=== PATIENT | female | born 1940 | race Caucasian/White ===

== ENCOUNTER → 2016-04-27 | Outpatient (CLI) | payer OTHER, MEDICARE ==
--- NOTE | 2016-04-27 10:58 | MA ---
Screening Digital Mammogram Clinical Indications: Routine screening. Technique: Standard cephalocaudal and mediolateral oblique projections are obtained. This examinati on is processed by the Lingua[employer] computer aided detection system. Comparison: March 2015 and 2014, February 2013 and 2011 Breast density: B; There are scattered fibroglandular densities. Findings: CAD was reviewed. No suspicious findings are identified. Impression: Negative mammogram. . BI-RADS 1. Recommendation: Routine screening is recommended in one year. [facility] will send a result letter to the patient. Negative mammography should not preclude additional workup of a clinically suspicious finding. The patient's information is entered into a reminder system with a target due date for her next mammo gram.
== END ==
LOC: FIMAGING 10:10
DX: Z12.31 Encounter for screening mammogram for malignant neoplasm of breast (principal)
CPT/HCPCS: G0202

== ENCOUNTER → 2016-05-19 | Outpatient (CLI) | payer OTHER, MEDICARE | LOC: CIMAGING 07:49 | PROVIDERS: ATTEND Internal Medicine Interventional Cardiology | DX: I74.3 Embolism and thrombosis of arteries of the lower extremities (principal); Z96.651 Presence of right artificial knee joint ==

== ENCOUNTER 2016-05-29 06:34 | Observation (INO) | payer OTHER, MEDICARE ==
[2016-05-29] MEDS ORDERED: NS 1,000 ML IV ONE (06:39)
[2016-05-29] MEDS ORDERED: FAMOTIDINE 20 MG TAB PO ONE (06:39)
[2016-05-29] MEDS ORDERED: diphenhydrAMINE 25 MG CAP PO ONE ×2 (06:39→07:19)
[2016-05-29] MEDS ORDERED: DIAZEPAM 5 MG TAB PO ONE (06:39)
[2016-05-29] MEDS ORDERED: ASPIRIN EC 325 MG TAB PO ONE ×2 (06:39→07:19)
--- NOTE | 2016-05-29 07:03 | CPEKG ---
Heart Rate: 75 RR Interval: 800 P-R Interval: 164 QRSD Interval: 80 QT Interval: 400 QTC Interval: 447 P Barton: 26 QRS Barton: 48 T Wave Barton: 88 EKG Severity - ABNORMAL ECG - EKG Impression: SINUS RHYTHM EKG Impression: ANTERIOR INFARCT, AGE INDETERMINATE Electronically Signed By: Dennis De La Cruz 30-May-2016 09:22:50
[2016-05-29 07:12] LABS: % IMMATURE GRANULYOCYTES 0.7 % (0.0-1.1); ABSOLUTE IMMATURE GRANULOCYTES 0.03 10^3/uL (0.00-0.10); ADD DIFF? NO; ADD MORPH? NO; ADD SCAN? NO; ATYPICAL LYMPHOCYTE FLAG 0 (0-99); FRAGMENT RBC FLAG 0 (0-99); HEMATOCRIT 38.9 % (38.0-47.0); HEMOGLOBIN 12.7 g/dL (12.6-16.3); LEFT SHIFT FLG 0 (0-99); LIPEMIA HEMOLYSIS FLAG 80 (0-99); MEAN CELL HEMOGLOBIN 32.8 pg (27.9-34.1); MEAN CELL HEMOGLOBIN CONCENTR. 32.6 g/dL (32.4-36.7); MEAN CELL VOLUME 100.5 fL (81.5-99.8); MEAN PLATELET VOLUME 10.7 fL (8.7-11.7); PLATELET CLUMPS FLAG 0 (0-99); PLATELET COUNT 121 10^3/uL (150-400); RED BLOOD CELL COUNT 3.87 10^6/uL (4.18-5.33); RED CELL DISTRIBUTION WIDTH 14.6 % (11.5-15.2)
[2016-05-29] MEDS ORDERED: FAMOTIDINE 20 MG TAB ONE (07:19)
[2016-05-29] MEDS ORDERED: DIAZEPAM 5 MG TAB ONE (07:19)
[2016-05-29 07:20] LABS: INR 1.03 (0.83-1.16); PROTIME(PATIENT) 13.4 SEC (12.0-15.0)
[2016-05-29 07:31] LABS: ANION GAP 8 mEq/L (8-16); CARBON DIOXIDE 25 mEq/l (22-31); CHLORIDE 110 mEq/L (97-110); CHOLESTEROL 123 mg/dL (140-220); CHOLESTEROL/HDL RATIO 2.67 RATIO (1.00-4.44); CREATININE 0.7 mg/dL (0.6-1.0); GLOMERULAR FILTRATION RATE > 60; GLUCOSE 116 mg/dL (70-100); HIGH DENSITY LIPOPROTEIN 46 mg/dL (40-85); LDL/HDL RATIO 1.28 RATIO (1.00-3.22); LOW DENSITY LIPOPROTEIN 59 mg/dL (80-100); MAGNESIUM 2.1 mg/dL (1.6-2.3); NON-HIGH DENSITY LIPOPROTEIN 77 mg/dL (90-129); POTASSIUM 4.2 mEq/L (3.5-5.2); SODIUM 143 mEq/L (134-144); TRIGLYCERIDE 93 mg/dL (35-135); VERY LOW DENSITY LIPOPROTEINS 18 mg/dL (8-25)
[2016-05-29] MEDS ORDERED: MIDAZOLAM 2 MG/2 ML VIAL ONE ×2 (07:43→09:24)
[2016-05-29] MEDS ORDERED: IOPAMIDOL (ISOVUE-300) 200 ML BTL IV ONE (07:43)
[2016-05-29] MEDS ORDERED: fentaNYL 100 MCG/2 ML INJ ONE ×2 (07:43→09:58)
[2016-05-29] MEDS ORDERED: LIDOCAINE 1% 30 ML SDV ONE (07:43)
[2016-05-29] MEDS ORDERED: HEPARIN 10,000 UNIT/10 ML MDV ONE (07:44)
--- NOTE | 2016-05-29 08:53 | SUROPNOTE ---
[facility] Operative Report - Surgery Date of procedure: 05/29/2016 Indication: This patient is a 75 year old female with a history of CAD s/p anterior OK and LAD stenting, ICM, PAD s/p femoral endarterectomy and right SFA intervention 01/2016 with Jetstream atherectomy and drug-coated balloon angioplasty, and pulmonary lymphoid sarcoid (non-parenchymal), presenting with acute recurrence of right calf claudication, worse with ambulation, similar to previous symptoms preceding endarterectomy and peripheral intervention in 2015. Patient states she can walk 5 blocks, but then has to stop secondary to leg pain. Ultrasound of the right lower extremity demonstrates heavy calcification with either total occlusion or near total occlusion very focally at the distal popliteal artery, with subsequent reconstituted 3-vessel runoff to the foot. Of note this finding was missed on CTAs secondary to artifact from right knee prosthesis. Peripheral intervention indicated secondary to severe lifestyle limiting claudication and CTA imaging indicative of high-grade stenosis. Procedures Performed: 1. Left femoral access. 2. Right femoral angiography with lower extremity runoff. 3. Atherectomy of the distal right popliteal artery with a Jetstream catheter. 4. Drug-coated balloon angioplasty of the distal right popliteal artery. Description of Procedure: Informed consent was obtained. Risks, benefits, and alternatives of the procedure were discussed. The patient was brought to the catheterization laboratory where the left groin was sterilely prepped and draped. Lidocaine 2% utilized for local anesthetic. A 6-Danish hemostatic sheath was placed in the left femoral artery utilizing the modified Seldinger technique. A 6-Danish diagnostic GAMA catheter was placed over a J guidewire. The J guidewire was exchanged for a stiff angled glidewire and the GAMA catheter was advanced. Intravenous heparin was administered. GAAM catheter was removed and exchanged for a straight flush catheter. Angiography was performed via the straight flush catheter, however it was very difficult to get an adequate view secondary to the knee prosthesis. This required multiple adjustments of the patient and the equipment to achieve a view of the angiography, not obstructed by the knee prosthesis. In the meantime, while further position adjustments were made, the 6-Danish sheath was exchanged over an angled Glidewire Advantage for a 55cm Cook 7- Danish up-and-over sheath. A 4-Danish non-taper angle Glidecath was placed over the angled Glidewire Advantage into the popliteal. Glidewire Advantage successfully crossed the distal popliteal total occlusion and advanced distally. Grandslam wire was then utilized to position a 6mm SpiderFx filter, embolic protection device, distal to the lesion. The SpiderFx filter was deployed. Grandslam wire was removed. A 2.4mm/3.4mm Jetstream XC was utilized and the Jetstream catheter was placed across the distal popliteal lesion. Atherectomy was performed in the blades down configuration for three runs. The atherectomy catheter was removed. Angiography was performed. Next, a 5mm x 60mm Lutonix 035 drug-coated balloon was chosen and carefully positioned to cover the distal popliteal. This was inflated to 6 atmospheres for 3 minutes. Angiography was performed, demonstrating satisfactory result, with 10% residual stenosis. SpiderFx filter was removed. Wire was removed. Runoff angiography was performed through the sheath with hand-injection. 7-Danish sheath was exchanged for a 7-Danish short sheath. Protamine was administered to reverse heparin and Angio-Seal arteriotomy repair was performed. Findings: Hemodynamics: Aortic pressure 132/56, mean 87. Angiography: Angiography through the straight flush catheter demonstrates a heavily calcified, focal chronic total occlusion of the distal popliteal artery , with reconstituted 3-vessel runoff below the knee. Percutaneous intervention: The chronic total occlusion of the distal popliteal was crossed with a Glidewire Advantage wire. This was followed by Jetstream atherectomy and drug-coated balloon angioplasty of the distal popliteal. This demonstrated satisfactory result by angiography, with 10% residual stenosis. Plan: 1. Dual antiplatelet therapy 2. Continue walking program 3. Continue aggressive risk modification. 4. Follow patient symptomatically and with intermittent ankle brachial index.
[2016-05-29] MEDS ORDERED: PROTAMINE SULFATE 50 MG/5 ML VIAL IVP ONE (10:24)
[2016-05-29] MEDS ORDERED: HYDROCODONE/APAP 5/325 TAB PO PRN (11:22)
[2016-05-29] MEDS ORDERED: ONDANSETRON 4 MG/2 ML VIAL IVP PRN (11:22)
[2016-05-29] MEDS ORDERED: OXYCODONE/APAP 5/325 TAB PO PRN (11:22)
[2016-05-29] MEDS ORDERED: ATROPINE SULFATE 1 MG/10 ML SYR IVP PRN (11:22)
[2016-05-29] MEDS ORDERED: LORazepam 2 MG/ML INJ IVP PRN (11:22)
[2016-05-29] MEDS ORDERED: TEMAZEPAM 15 MG CAP PO PRN (11:22)
[2016-05-29] MEDS: D5W 1/2 NS 1,000 ML IV SCH ×2 (13:05→21:01)
[2016-05-29] MEDS: CARVEDILOL 6.25 MG TAB PO SCH (18:54)
[2016-05-29] MEDS: BRIMONIDINE/TIMOLOL 5 ML OPHT.BTL RTEYE SCH (20:37)
[2016-05-29] MEDS: valACYclovir 500 MG TAB PO SCH (20:37)
[2016-05-29] MEDS: LOSARTAN POTASSIUM 25 MG TAB PO SCH (20:37)
[2016-05-29] MEDS: DORZOLAMIDE/TIMOLOL 10 ML OPHT.BTL LEFTEYE SCH (20:38)
[2016-05-29] MEDS: CYCLOSPORINE 0.05% 1 EACH BOX RTEYE SCH (20:38)
[2016-05-29] MEDS ORDERED: ROSUVASTATIN CALCIUM 20 MG TAB PO SCH (21:00)
[2016-05-29] MEDS ORDERED: ASPIRIN EC 81 MG TAB PO SCH (21:00)
[2016-05-30 04:30] LABS: % IMMATURE GRANULYOCYTES 0.9 % (0.0-1.1); ABSOLUTE IMMATURE GRANULOCYTES 0.03 10^3/uL (0.00-0.10); ADD DIFF? NO; ADD MORPH? NO; ADD SCAN? NO; ATYPICAL LYMPHOCYTE FLAG 20 (0-99); FRAGMENT RBC FLAG 0 (0-99); HEMATOCRIT 34.9 % (38.0-47.0); HEMOGLOBIN 11.5 g/dL (12.6-16.3); LEFT SHIFT FLG 0 (0-99); LIPEMIA HEMOLYSIS FLAG 80 (0-99); MEAN CELL HEMOGLOBIN 33.3 pg (27.9-34.1); MEAN CELL VOLUME 101.2 fL (81.5-99.8); PLATELET CLUMPS FLAG 0 (0-99); PLATELET COUNT 102 10^3/uL (150-400); RED BLOOD CELL COUNT 3.45 10^6/uL (4.18-5.33); RED CELL DISTRIBUTION WIDTH 14.6 % (11.5-15.2)
[2016-05-30 05:05] LABS: ALBUMIN 3.1 g/dL (3.5-5.0); ANION GAP 7 mEq/L (8-16); ASPARTATE AMINOTRANSFERASE 32 IU/L (14-46); BILIRUBIN,TOTAL 0.6 mg/dL (0.1-1.4); CALCIUM 8.7 mg/dL (8.5-10.4); CARBON DIOXIDE 23 mEq/l (22-31); CHLORIDE 110 mEq/L (97-110); CREATININE 0.6 mg/dL (0.6-1.0); GLOMERULAR FILTRATION RATE > 60; GLUCOSE 112 mg/dL (70-100); LACTATE DEHYDROGENASE 517 IU/L (313-618); POTASSIUM 4.3 mEq/L (3.5-5.2); SODIUM 140 mEq/L (134-144)
[2016-05-30 07:25] VITALS: BP 138/82; PULSE 76; RESP 14; TEMP 97.9; O2SAT 94
[2016-05-30] MEDS ORDERED: CLOPIDOGREL BISULFATE 75 MG TAB PO SCH (09:00)
[2016-05-30] MEDS ORDERED: PANTOPRAZOLE SODIUM 40 MG TAB PO SCH (09:00)
--- NOTE | 2016-05-30 09:16 | SOAPPROG ---
[facility] Progress Note Assessment/Plan: Assessment: Cardiology (Ava) 1. Status post drug coated balloon angioplasty of right distal popliteal artery. 2. History of remote right SFA endarterectomy (12/2014) followed by restenosis and drug coated balloon angioplasty in January 2016. 3. CAD s/p remote CT and LAD stenting. 4. Hyperlipidemia. 5. HTN. 6. Pulmonary sarcoid. Plan: 1. Continue DAPT with aspirin and Plavix 75 mg/d. 2. ? holding aspirin and/or Plavix prior to scheduled thumb surgery on 06/13/16 ( [place]). 3. Continue all other medication as directed. 4. Office follow up June 08 at 345 pm. 05/30/16 09:09 Subjective: No complaints overnight. Left groin puncture site is uncomplicated. Strong DP pulses bilaterally, now R slightly greater than L. Objective: Vital Signs Temp Pulse Resp BP Pulse Ox 36.6 C 76 14 138/82 H 94 05/30/16 07:22 05/30/16 07:22 05/30/16 07:22 05/30/16 07:22 05/30/16 07:22 Laboratory Results 05/30/16 04:07 05/30/16 04:07 05/29/16 05/30/16 05/31/16 05:59 05:59 05:59 Intake Total 3620 Balance 3620 PT 13.4 SEC (12.0-15.0) 05/29/16 07:00 INR 1.03 (0.83-1.16) 05/29/16 07:00 - Time Spent With Patient Time Spent With Patient: 45 minutes spend in coordinating care, physical exam, and documentation. ICD10 Worksheet Patient Problems: Problems Problem Status Onset CAD (coronary artery disease) Acute Claudication of right lower extremity Acute
--- NOTE | 2016-05-30 09:23 | CPEKG ---
Heart Rate: 76 RR Interval: 789 P-R Interval: 168 QRSD Interval: 86 QT Interval: 384 QTC Interval: 432 P Albia: 55 QRS Albia: 56 T Wave Albia: 90 EKG Severity - ABNORMAL ECG - EKG Impression: SINUS RHYTHM EKG Impression: ANTERIOR INFARCT, AGE INDETERMINATE Electronically Signed By: Dennis De La Cruz 30-May-2016 16:51:50
[2016-05-30] MEDS: CARVEDILOL 6.25 MG TAB PO SCH (09:37)
[2016-05-30] MEDS: valACYclovir 500 MG TAB PO SCH (09:37)
[2016-05-30] MEDS: LOSARTAN POTASSIUM 25 MG TAB PO SCH (09:38)
[2016-05-30] MEDS: BRIMONIDINE/TIMOLOL 5 ML OPHT.BTL RTEYE SCH (09:40)
[2016-05-30] MEDS: DORZOLAMIDE/TIMOLOL 10 ML OPHT.BTL LEFTEYE SCH (09:41)
[2016-05-30] MEDS: CYCLOSPORINE 0.05% 1 EACH BOX RTEYE SCH (09:41)
--- NOTE | 2016-05-30 10:17 | GDS ---
[f rep st] DISCHARGE SUMMARY DISCHARGE DIAGNOSES: 1. Status post drug coated balloon angioplasty of right distal popliteal artery. 2. History of right superficial femoral artery endarterectomy and subsequent drug coated balloon an gioplasty. 3. Coronary artery disease, status post remote anterior myocardial infarction and left anterior sterling cending coronary artery stenting. 4. Hyperlipidemia. 5. Hypertension. 6. Pulmonary sarcoid. HOSPITAL PROCEDURES: 1. Left femoral access. 2. Right femoral angiography with lower extremity runoff. 3. Atherectomy of distal right popliteal with a jet stream catheter. 4. Drug coated balloon angioplasty of the distal right popliteal artery. HOSPITAL COURSE: The patient is a pleasant 75-year-old female with diagnoses as above who has been complaining of recurrent claudication type symptoms behind her right knee for the past few months si milar but somewhat different compared to her claudication experienced with prior right superficial f emoral artery claudication. The patient initially had an abdominal CT angiogram with bilateral runo ff earlier this year that showed patency of her right superficial femoral artery following balloon a ngioplasty, but likely missed her popliteal stenosis due to superimposed knee hardware. Due to ongo ing symptoms, we performed right lower extremity arterial Doppler ultrasound which was able to diagn ose the stenotic lesion. She presented to the hospital yesterday for elective percutaneous interven tion with Dr. Ramirez. The patient ultimately received a jet stream atherectomy and drug coated bal loon angioplasty for this focal distal popliteal lesion. Please see the dictated catheterization re port. The patient has done well overnight with no complications. Laboratory studies this morning show slight drop in hemoglobin and hematocrit due to blood loss, now 11.5 and 13.9, respectively. Chemistry panel is unremarkable. Fasting lipids show an LDL cholester ol of 59 with an HDL of 46. She will continue on all her same medications which include dual anti-p latelet therapy with aspirin and Plavix. She does have an upcoming thumb surgery scheduled for the end of the month, see discharge instructions below. DISCHARGE MEDICATIONS: Aspirin 81 mg p.o. daily. Clopidogrel 75 mg p.o. daily. Combigan 1 drop to right eye twice daily. Carvedilol 12.5 mg p.o. twice daily. Vitamin D3 2000 units p.o. daily. Vi tamin B12 1500 mcg p.o. daily. Cosopt 1 drop to left eye twice daily. Furosemide 20 mg p.o. every other day. Losartan 12.5 mg p.o. twice daily. Multivitamin. Cyclosporine eye drops, 1 drop to the right eye twice daily. [place]-3 fatty acids. DISCHARGE INSTRUCTIONS: The patient is to remain on dual anti-platelet therapy with aspirin 81 mg a nd clopidogrel 75 mg once daily. I have continued all her other home medications as well. Emily moss her thumb surgery scheduled for June [address] Abad, we have attempted to contact Dr. Abad. How ever, optimally she would have this surgery performed on aspirin. Otherwise she has office followup scheduled for June 08 at 3:45. We have discussed continuing a regular walking program. /[id number]/MODL
[2016-05-31] MEDS ORDERED: FUROSEMIDE 20 MG TAB PO SCH (09:00)
== END 2016-05-30 10:55 | disposition home or self-care (01) ==
LOC: FCATH 06:34 → F2W 10:42
PROVIDERS: ADMIT Internal Medicine Interventional Cardiology; ATTEND Internal Medicine Interventional Cardiology
PROC: 047M3ZZ Dilation of Right Popliteal Artery, Percutaneous Approach (ICD-10-PCS; principal; 2016-05-29)
PROC: 04CM3ZZ Extirpation of Matter from Right Popliteal Artery, Percutaneous Approach (ICD-10-PCS; principal; 2016-05-29)
DX: I70.211 Atherosclerosis of native arteries of extremities with intermittent claudication, right leg (principal); I77.1 Stricture of artery; I25.10 Atherosclerotic heart disease of native coronary artery without angina pectoris; I25.2 Old myocardial infarction; Z95.5 Presence of coronary angioplasty implant and graft; D86.0 Sarcoidosis of lung; I10 Essential (primary) hypertension
CPT/HCPCS: 37225; 75710; 93005; C1724; C1769; C1884; C2623; J1644; J2250; J2720; J3010; Q9967

== ENCOUNTER → 2016-10-26 | Outpatient (CLI) | payer OTHER, MEDICARE | LOC: FIMAGING 08:00 | PROVIDERS: ATTEND Physician Assistant Medical | DX: T82.858A Stenosis of other vascular prosthetic devices, implants and grafts, initial encounter (principal) ==

== ENCOUNTER → 2017-04-18 | Outpatient (CLI) | payer OTHER, MEDICARE | LOC: FIMAGING 12:59 | PROVIDERS: ATTEND Internal Medicine Cardiovascular Disease | DX: T82.856D Stenosis of peripheral vascular stent, subsequent encounter (principal); Z95.828 Presence of other vascular implants and grafts ==

== ENCOUNTER → 2017-04-25 | Outpatient (CLI) | payer OTHER, MEDICARE | LOC: BHFA 10:00 | PROVIDERS: ATTEND Internal Medicine Cardiovascular Disease | DX: I73.9 Peripheral vascular disease, unspecified (principal) ==

== ENCOUNTER 2017-04-30 08:08 | Inpatient (IN) | payer OTHER, MEDICARE ==
--- NOTE | 2017-04-30 08:26 | EDPHY ---
H & P Stated Complaint: R leg worsening pain--comprimised bld flow per Adam Time Seen by Provider: 04/30/17 08:25 - Medical/Surgical History Hx Asthma: No Hx Chronic Respiratory Disease: Yes Hx Diabetes: No Hx Cardiac Disease: Yes Hx Renal Disease: No Hx Cirrhosis: No Hx Alcoholism: No Hx HIV/AIDS: No Hx Splenectomy or Spleen Trauma: No Other PMH: tonsils,appy,ortho,cardiac with stent,emphysema, HTN, dyslipidemia - Social History Smoking Status: Former smoker Constitutional: Initial Vital Signs Temperature (C) 36.0 C 04/30/17 08:12 Heart Rate 80 04/30/17 08:12 Respiratory Rate 16 04/30/17 08:12 Blood Pressure 139/75 H 04/30/17 08:12 O2 Sat (%) 95 04/30/17 08:12 O2 Delivery Mode Room Air Allergies/Adverse Reactions: Penicillins Allergy (Intermediate, Verified 08/11/15 07:03) WELTS, SWOLLEN Home Medications: Medication Instructions Recorded Carvedilol [Coreg (*)] 12.5 mg PO BIDMEAL 01/19/15 Cholecalciferol Vit D3 [Vitamin D3 2,000 units PO DAILY 01/19/15 (*)] Cyanocobalamin [Vitamin B12 (*)] 1,500 mcg PO DAILY 01/19/15 Herbals/Supplements -Info Only 1 ea PO DAILY 01/19/15 Losartan Potassium [Cozaar 25 mg 12.5 mg PO BID 01/19/15 (*)] Multivitamins [Multivitamin (*)] 1 each PO DAILY 01/19/15 Ovalo-3 Ethyl Est-Lovaza [Lovaza 1 1 gm PO BID 01/19/15 gm (*)] Pantoprazole Sodium [Protonix 40mg 40 mg PO DAILY 01/19/15 (*)] Rosuvastatin Calcium [Crestor 20mg 20 mg PO HS 01/19/15 (*)] cycloSPORINE 0.05% [Restasis Opht 1 drop RTEYE BID 01/19/15 Drops(*)] valACYclovir [Valtrex (*)] 1,000 mg PO BID 01/19/15 Furosemide [Lasix 20 MG (*)] 20 mg PO Q2D 01/19/16 Nitroglycerin [Nitrostat 0.4 mg 0.4 mg SL Q5M PRN 01/19/16 (*)] Clopidogrel Bisulfate [Plavix (*)] 75 mg PO DAILY #0 tab 01/20/16 Aspirin EC [Aspirin EC 81 mg (*)] 81 mg PO HS 05/29/16 Brimonidine/Timolol [Combigan (*)] 1 drop RTEYE BID 05/29/16 Dorzolamide/Timolol [Cosopt (*)] 1 drops LEFTEYE BID 05/29/16 Medical Decision Making - Diagnostics Imaging: Discussed imaging studies w/ call center analyst Radiologist, I viewed and interpreted images myself ED Course/Re-evaluation: CHIEF COMPLAINT: Right leg pain HISTORY OF PRESENT ILLNESS: The patient is a 76 y/o female with vascular disease complaining of progressive right leg pain for the last several months. Her medical history includes sarcoidosis, rheumatoid arthritis, CAD, DC with stent, peripheral vascular disease with atherectomy and angioplasty of the distal right popliteal artery in May 2016. She had a few months of relief following the angioplasty with Dr. Ramirez, but her calf pain recurred around October and an ultrasound then showed 50-75% stenosis of the popliteal artery. Her pain is aggravated by walking and until recently resolved at rest, though the distance she has been able to walk with less pain has steadily decreased. She has had difficulty getting into a specialist for reevaluation, but was able to see Dr. Medina a few weeks ago. He performed another ultrasound that showed 90-95% stenosis of her popliteal artery. Last night the pain woke her from sleep and has been constant since then and is not aggravated by leg raise or palpation. She is on Plavix. She denies chest pain, dyspnea, fever, rash, peripheral ulcers. REVIEW OF SYSTEMS: A 10 point review of systems was performed and is negative with the exception of the elements mentioned in the history of present illness. PHYSICAL EXAM: HR, BP, O2 Sat, RR. Temp noted General Appearance: Alert, well hydrated, appropriate, and non-toxic appearing. Head: Atraumatic without scalp tenderness or obvious injury Eyes: Pupils equal, round, reactive to light and accommodation, EOMI, no trauma , no injection. Nose: Atraumatic, no rhinorrhea, clear. Throat: Mucus membranes moist. Neck: Supple, nontender, no lymphadenopathy. Respiratory: No retractions, no distress, no wheezes, and no accessory muscle use. Lungs are clear to auscultation bilaterally. Cardiovascular: Regular rate and rhythm, no murmurs, rubs, or gallops. Right leg: biphasic dorsalis pedis pulses on Doppler, no discernable posterior tibial pulse, bounding right femoral pulse. Good capillary refill all extremities. Gastrointestinal: Abdomen is soft, nontender, non-distended, no masses, no rebound, no guarding, no peritoneal signs. Musculoskeletal: Normal active ROM of all extremities, atraumatic. No right foot ulcers. Neurological: Alert, appropriate, and interactive. The patient has non-focal cranial nerves, motor, sensory, and cerebellar exam. Skin: No rashes, good turgor, no nodules on palpation. Past medical history: CAD, DC in 1998 with stenting, emphysema, postoperative blood clot 2009, sarcoidosis, rheumatoid arthritis, hyperlipidemia Past surgical history: Appendectomy, tonsillectomy, knee replacement Family history: Noncontributory Social history: . Lives alone in [place]. PCP: Dr. Clay, Leadership Development Instructor: Dr. Medina and formerly Dr. Ramirez. Prior medical records reviewed including operative note from Dr. Ramirez on 05/29 for atherectomy and angioplasty. DIAGNOSTICS/PROCEDURES/CRITICAL CARE TIME: CTA with runoff of right leg: Critical care time spent by me, Dr. Campos, exclusively with this patient was 45 minutes, exclusive of PA time and exclusive of procedures. The organ system at risk was vascular. Time spent in serial assessments of patient, discussion with patient, consideration of interventions, review of imaging and past records , and consultation with cardiology and surgery. DIFFERENTIAL DIAGNOSIS: The differential diagnosis for the patient's leg pain included but was not limited to popliteal stenosis, peripheral vascular disease , cellulitis, hypoalbuminemia, congestive heart failure, cor pulmonale, venous stasis, trauma, and DVT. MEDICAL DECISION MAKING: This is a 76 y/o female with vascular disease and prior right popliteal angioplasty and atherectomy performed about one year ago who presents with several months of worsening claudication who now has rest pain in her right leg. An US 2 weeks ago showed 90-95% stenosis of her popliteal artery. She has biphasic right dorsalis pedis pulse on Doppler consistent with stenosis and a bounding right femoral pulse indicating good inflow. No evidence of cellulitis or ulcerations. Plan for labs, symptom management as needed, and cardiology consultation. Patient declined pain medication at this time. 0905: Consulted with Dr. Chung, cardiology. He will review history and contact me again. 0935: Consulted with Dr. Chung. He consulted with Dr. Steele, surgeon, and Dr. Soares, cardiologists, and plans to admit for femoral to popliteal bypass today or tomorrow. He requests a CTA with runoff of right leg. 0950: Consulted again with Dr. Chung after he assessed patient in the ED. He would like to cancel the CTA due to possible artifact in the image due to prior knee replacement. 1006: Consulted with Dr. Steele, surgeon. He will assess patient in the ED and plans to manage this surgically. He does want the CTA performed. Reevaluated patient and discussed findings and recommendations. She agrees to plan. Spoke with hospitalist service. Dr. Mitchell accepts admission. 1034: Consulted with Dr. Medina, patient's early childhood lead teacher. He agrees with management plan. - Data Points Laboratory Results: Laboratory Results 04/30/17 09:40 04/30/17 04/30/17 04/30/17 09:40 09:40 09:40 WBC Pending RBC Pending Hgb Pending Hct Pending MCV Pending MCH Pending MCHC Pending RDW Pending Plt Count Pending MPV Pending Neut % (Auto) Pending Lymph % (Auto) Pending [place] % (Auto) Pending Eos % (Auto) Pending Baso % (Auto) Pending Nucleat RBC Rel Count Pending Absolute Neuts (auto) Pending Absolute Lymphs (auto) Pending Absolute Monos (auto) Pending Absolute Eos (auto) Pending Absolute Basos (auto) Pending Absolute Nucleated RBC Pending Immature Gran % Pending Immature Gran # Pending PT 13.7 SEC SEC (12.0-15.0) INR 1.03 (0.83-1.16) APTT 20.0 SEC L SEC (23.0-38.0) Sodium 143 mEq/L mEq/L (135-145) Potassium 4.8 mEq/L mEq/L (3.5-5.2) Chloride 105 mEq/L mEq/L (97-110) Carbon Dioxide 25 mEq/l mEq/l (22-31) Anion Gap 13 mEq/L mEq/L (8-16) BUN 17 mg/dL mg/dL (7-23) Creatinine 0.6 mg/dL mg/dL (0.6-1.0) Estimated GFR > 60 Glucose 101 mg/dL H mg/dL (70-100) Calcium 9.4 mg/dL mg/dL (8.5-10.4) Departure - Departure Disposition: [facility] Inpatient Acute Clinical Impression: Claudication of right lower extremity, Rest pain of right lower extremity concurrent with and due to atherosclerosis of bypass graft, Stenosis of right popliteal artery Condition: Fair Referrals: Yanet Clay MD [Primary Care Provider] - As per Instructions Report Scribed for: Jesu Campos Report Scribed by: Orquidea Case Date of Report: 04/30/17 Time of Report: 08:46
[2017-04-30 09:49] LABS: PLATELET COUNT 87 10^3/uL (150-400)
[2017-04-30 10:02] LABS: INR 1.03 (0.83-1.16); PROTIME(PATIENT) 13.7 SEC (12.0-15.0)
[2017-04-30] MEDS ORDERED: IOPAMIDOL (ISOVUE-370) 150 ML BTL IV ONE (10:16)
--- NOTE | 2017-04-30 11:03 | GCON ---
[f rep st] CONSULTATION CARDIOLOGY CONSULTATION DATE OF CONSULTATION: 04/30/2017 REFERRING PHYSICIAN: Jesu Campos MD HISTORY OF PRESENT ILLNESS: The patient is a 76-year-old female with a history of coronary disease, previous myocardial infarction, PCI of the LAD, and ischemic cardiomyopathy. She is a former patient of Dr. Main Ramirez'santiago. She also has a history of peripheral vascular disease, which has been treate d by a percutaneous angioplasty with stent placement in the right superficial femoral artery in 2015. Because of recurrent claudication, she underwent a repeat evaluation in early 2016, [facility] disclosed a previously unrecognized right popliteal high-grade stenosis. This stenosis had been o bscured on previous angiography, both CT and invasive, by the components from a previous right total knee arthroplasty. In May of 2016, she underwent atherectomy and drug-coated balloon angioplasty o f her right popliteal stenosis. Over the past several weeks, she has developed progressively worseni ng claudication. Over the weekend, she began to have pain at rest in her right foot, particularly at nighttime. She contacted Dr. Reece Matamoros from our practice this morning through the answering service to report rest claudication. He advised her to come to the emergency room. In the emergency room, her right foot is warm. It is not cyanotic. There are only dopplerable pulses in right foot. When I speak with her, she says that she is not having any significant pain. Rather, she has a sensation feeling like her right foot is swollen. PAST CARDIAC HISTORY AND TESTING: She has a history of a previous anterior myocardial infarction in 1998, which was treated with PCI of the LAD. Her most recent cardiac catheterization took place in [facility] 2010. That study demonstrated an ischemic cardiomyopathy with an ejection fraction of mercedes roximately 45%, with anterior and apical akinesis. Her previous LAD stent site was patent. The rita jose of her coronary tree demonstrated [id number] coronary atherosclerosis. She had routine followup with Dr. Ramirez, including a reportedly negative nuclear stress test within the past couple of years. Peripheral vascular disease as outlined above. PAST MEDICAL HISTORY: In addition to her cardiovascular issues, she has a history of sarcoidosis. S he has osteoarthritis, status post bilateral total knee arthroplasties. She had a DVT after one of h er knee operations. There is a history of hypertension and peptic ulcer disease. FAMILY HISTORY: Noncontributory. MEDICATIONS: Please refer to the electronic record. Relevant cardiac medications include aspirin, c lopidogrel, carvedilol, furosemide, losartan, and rosuvastatin. ALLERGIES: Penicillin. SOCIAL HISTORY: She is . She has adult stepchildren. She is a former smoker, having stopped at the time of her myocardial infarction. She does not consume significant amounts of alcohol. Her physical exercise is limited by her arthritis and claudication. REVIEW OF SYSTEMS: Positive for resting right foot ischemic discomfort and joint pain from her osteo arthritis. Otherwise, a 10-point review was negative. PHYSICAL EXAMINATION: VITAL SIGNS: Heart rate 96, blood pressure 139/75, O2 saturation 95% on room air. GENERAL: This is a pleasant, well-developed, well-nourished woman in no acute distress. She i s alert and oriented x3. HEAD AND NECK: No scleral icterus. Mucous membranes moist. Carotid pulse s 2+, without bruits. There is no JVD. CHEST: Lung del cast[place] clear bilaterally. CARDIAC: Regular ra te and rhythm, with a normal S1 and S2. There is no murmur or gallop. ABDOMEN: Soft, nontender, no ndistended, with normal bowel sounds. EXTREMITIES: 2+ femoral pulses bilaterally. One to 2+ pedal pulses on the left. Nonpalpable pedal pulses on the right, but reportedly, dopplerable by the emerge ncy room staff. The right foot is warm and has normal capillary refill. There is no cyanosis. LABORATORY STUDIES: Pending at the time of this dictation. Lower extremity duplex: A lower extremity duplex study performed on April 18 of this year suggests that the patient has a recurrent 90% to 95% stenosis at the right popliteal site. IMPRESSION: This is a 76-year-old woman with a history of cardiovascular disease consisting of coron esmer disease with previous myocardial infarction and percutaneous coronary intervention. She also has a history of lower extremity peripheral arterial disease, status post 2 percutaneous revascularizati on procedures on her right lower extremity. She now presents with progressively worsening claudicati on culminating in rest pain over the weekend. She does not appear to have acute, limb-threatening is chemia. PLAN: I have discussed her situation with 2 of my partners who perform peripheral revascularization procedures. The location at the popliteal is particularly problematic for repeat percutaneous revasc ularization procedures. There is a high incidence of restenosis. The patient appears to have good q uality vessels proximal and distal to the popliteal fossa. Therefore, the recommendation is that a s urgical revascularization procedure be considered. The patient appears to be an acceptable candidate for such surgery. She will be admitted to the hospitalist service. She will be scheduled for a for mal arteriogram with Interventional Radiology tomorrow. CT angiography has previously been performed , and there is too much scatter from her right knee replacement to adequately visualize the area in q uestion. Dr. Laureano Steele has also been briefly contacted about the patient. We will re-engage him once we have angiographic images of her high-grade popliteal stenosis. /[id number]/MODL
[2017-04-30] MEDS ORDERED: ZOLPIDEM TARTRATE 5 MG TAB PO PRN (12:07)
[2017-04-30] MEDS ORDERED: ONDANSETRON DISINTEGRATING 4 MG TAB PO PRN (12:07)
[2017-04-30] MEDS ORDERED: ONDANSETRON 4 MG/2 ML VIAL IVP PRN (12:07)
[2017-04-30] MEDS ORDERED: ACETAMINOPHEN 325 MG TAB PO PRN (12:07)
[2017-04-30] MEDS ORDERED: HEPARIN 20,000 UNIT/ML VIAL SC SCH (12:15)
[2017-04-30] MEDS: HEPARIN 5,000 UNIT/0.5 ML SYR SC SCH ×2 (13:07→20:55)
--- NOTE | 2017-04-30 13:36 | SOAPPROG ---
JORGITO Progress Note Assessment/Plan: Assessment/Plan: 76 Y F c CAD and a stent, PAD with multiple R leg angioplasties , here for resting R leg claudication. Seen and examined with Dr. Steele. Full consult to follow. Reviewed CTA images. Will get arterial studies and US vein mapping for graft options. Plan for right below knee fem pop bypass next 1-2 days--most likely Sunday. 04/30/17 15:16 Objective: Vital Signs Temp Pulse Resp BP Pulse Ox 37.1 C 79 18 164/66 H 94 04/30/17 12:00 04/30/17 12:00 04/30/17 12:00 04/30/17 12:00 04/30/17 12:00 04/29/17 04/30/17 05/01/17 05:59 05:59 05:59 Output Total 300 Balance -300 PT 13.7 SEC (12.0-15.0) 04/30/17 09:40 INR 1.03 (0.83-1.16) 04/30/17 09:40 ICD10 Worksheet Patient Problems: Problems Problem Status Onset Claudication of right lower extremity Acute Rest pain of right lower extremity concurrent with and due to atherosclerosis of bypass graft Acute Stenosis of right popliteal artery Acute CAD (coronary artery disease) Acute
--- NOTE | 2017-04-30 14:08 | SOAPPROG ---
SOAP Progress Note Assessment/Plan: Assess 76-year-old female with limiting claudication and early rest pain on her right leg secondary to popliteal artery occlusion Patient is had 3 angioplasties and stent placements and her popliteal and distal superficial femoral artery over the last the 3-4 year. She has persistent calf claudication with walking less than walk CT angiogram shows adequate runoff in the infrapopliteal vessels. Toes viable with no skin lesions but decreased Doppler pulses on the right compared to palpable strong pulses on the left Chest clear/cor regular rhythm/carotids without bruits/neuro exam physiologic Plan: Cardiac clearance/noninvasive arterial studies/saphenous vein mapping/ than right fem-pop bypass with reverse saphenous vein/risks and options fully discussed 04/30/17 14:03 Objective: Vital Signs Temp Pulse Resp BP Pulse Ox 37.1 C 79 18 164/66 H 94 04/30/17 12:00 04/30/17 12:00 04/30/17 12:00 04/30/17 12:00 04/30/17 12:00 04/29/17 04/30/17 05/01/17 05:59 05:59 05:59 Output Total 300 Balance -300 PT 13.7 SEC (12.0-15.0) 04/30/17 09:40 INR 1.03 (0.83-1.16) 04/30/17 09:40 ICD10 Worksheet Patient Problems: Problems Problem Status Onset Claudication of right lower extremity Acute Rest pain of right lower extremity concurrent with and due to atherosclerosis of bypass graft Acute Stenosis of right popliteal artery Acute CAD (coronary artery disease) Acute
[2017-04-30] MEDS ORDERED: ALBUTEROL 60 PUFFS/8 GM MDI IH PRN (17:03)
[2017-04-30] MEDS: CARVEDILOL 6.25 MG TAB PO SCH (17:41)
--- NOTE | 2017-04-30 19:39 | PDGENHP ---
History and Physical History and Physical: CC: For worsening claudication right leg HISTORY: This patient has a history severe peripheral vascular disease with 3 previous percutaneous interventions to her right leg at the superficial femoral and popliteal arteries over the last couple years. Over last 3 months she has had gradually now much more rapidly progressive exertional claudication in the lower right leg finally now resulting in persisting rest pain in the foot. No fevers no injuries. She also has a history of coronary disease and there is no angina or heart failure symptoms or palpitations, has history of pulmonary sarcoidosis with no worsening of dyspnea. ROS: A comprehensive 10 system review revealed no other significant findings PAST MEDICAL HISTORY: Peripheral vascular disease with 3 previous percutaneous interventions on the arteries of the right leg Myocardial infarction with stent to left anterior descending artery, ischemic cardiomyopathy Hyperlipidemia Hypertension Pulmonary sarcoidosis on treatment Hypertension Osteoarthritis Total knee arthroplasties DVT of leg after a knee surgery Peptic ulcer disease FAMILY MEDICAL HISTORY: Atherosclerotic vascular disease SOCIAL HISTORY: Quit smoking 20 years ago MEDICATIONS: The patients list has been reconciled by our clinical pharmacist in the EMR. I have reviewed the list and ordered appropriate medicines. PHYSICAL EXAMINATION: Vital Signs: Stable without fever Examination: General: alert, oriented, good mentation, relaxed Skin: warm, dry, good color, no rash HEENT: normal Neck: no mass or jvd Resps: relaxed Lungs: clear breath sounds Heart: regular, no murmur Abdomen: soft, nondistended, nontender, +BS, no mass Upper Extremities: normal Lower Extremities: No palpable pulses at feet, which are reasonably warm with pale color, nothing overtly necrotic or acutely compromised No Bleeding or bruising Neurologic: normal speech/language, normal bilingual elementary school teacher, no focal weakness IV site: looks normal LABORATORY DATA: Mild anemia, platelets are 87,000 Stable metabolic panel RADIOLOGY STUDIES: CT angio of the right leg with runoff, I reviewed images: There is popliteal occlusion but there is good runoff below the knee with least 2 vessels 12 LEAD EKG: Sinus rhythm, some lateral ST segment abnormalities are chronic, with probable left bundle branch ASSESSMENT: -rapidly progressive worsening of right leg claudication with no peripheral vascular disease -occlusion of previous popliteal and superficial femoral artery stents in the right leg -history of coronary disease, stable at this time without angina or heart failure or arrhythmia -pulmonary sarcoidosis, stable at this time on medication without dyspnea or evidence of right heart failure -mild anemia (chronic and stable) and thrombocytopenia which has been seen intermittently in the past as well -hyperlipidemia on medication -hypertension, controlled at this time new PLANS: -Patient has been seen by Dr. Stef Chung and Alonso Steele. Recommendations are for proceeding with bypass surgery as she is having continued recurrences after previous percutaneous procedures. -at this time my assessment is that she is a very reasonable surgical candidate , with mildly increased risk over average with her past heart and lung disease but these are currently compensated and stable -will recheck lipids to see how we are doing with controlling that -will give 1 dose of subcu heparin tonight and then delay any DVT prophylaxis medicines until after she has finished her surgery and cleared by surgery team regarding bleeding risk -continue aspirin at this time -NPO after midnight -follow her cardiopulmonary status very closely postoperative I have reviewed the patient's case in detail with Dr. Ozzy Casillas I have reviewed the patient's past medical records as part of this assessment, including previous hospital admission records and laboratory data
--- NOTE | 2017-04-30 20:35 | CPIP ---
[f rep st] INVASIVE CARDIAC PROCEDURE DATE OF PROCEDURE: 04/30/2017 PREOPERATIVE DIAGNOSIS: Right leg claudication. POSTOPERATIVE DIAGNOSIS: Right leg claudication. The patient was seen for arterial studies. She demonstrates ankle-brachial index on the left of 1.01 , and on the right of 0.37. She has dampened arterial tracings below the knee on the right, and flat tracings at the metatarsal level. On the left, her tracings are normal down to the digital levels. IMPRESSION: Occluded popliteal artery with poor compensation. RECOMMENDATIONS: Recommend angiography for further evaluation. /[id number]/MODL
[2017-04-30] MEDS: ASPIRIN EC 81 MG TAB PO SCH (20:55)
[2017-04-30] MEDS: cycloSPORINE 0.05% 30 DROPERETTE/BOX EACHEYE SCH (20:55)
[2017-04-30] MEDS: OMEGA-3 ETHYL EST-LOVAZA 1 GM CAP PO SCH (20:55)
[2017-04-30] MEDS: ROSUVASTATIN CALCIUM 20 MG TAB PO SCH (20:55)
[2017-04-30] MEDS: valACYclovir 500 MG TAB PO SCH (20:55)
[2017-04-30] MEDS: LOSARTAN POTASSIUM 25 MG TAB PO SCH (21:16)
[2017-05-01 06:39] LABS: PLATELET COUNT 145 10^3/uL (150-400)
[2017-05-01 06:48] LABS: INR 1.13 (0.83-1.16); PROTIME(PATIENT) 14.7 SEC (12.0-15.0)
[2017-05-01] MEDS ORDERED: CLOPIDOGREL BISULFATE 75 MG TAB PO SCH (09:00)
--- NOTE | 2017-05-01 09:27 | GCON ---
[f rep st] CONSULTATION GENERAL AND VASCULAR SURGERY CONSULTATION SOURCE: Both from patient and chart review. CHIEF COMPLAINT: Right leg pain. HISTORY OF PRESENT ILLNESS: The patient is a 76-year-old female with a history of peripheral arterial disease with 3 right leg angioplasties and stent placement to her popliteal artery over the last 3-4 years. She also describes what sounds like a femoral artery endarterectomy needed for catheter access. The patient presented to the ER with worsened right leg claudication with new rest pain. CT angiogram showed an occluded short segment of the distal superficial femoral artery and of the right popliteal artery stent. She had good infrapopliteal runoff. She reports no foot redness or ulcerations. PAST MEDICAL HISTORY: Includes peripheral vascular disease, as described above. Also a history of myocardial infarction with a single stent to the left anterior descending artery, ischemic cardiomyopathy, hyperlipidemia, hypertension, pulmonary sarcoidosis, osteoarthrosis, history of DVT, peptic ulcer disease. PAST SURGICAL HISTORY: Includes total knee arthroplasties. HOME MEDICATIONS: Include acetaminophen, albuterol, furosemide, vitamin B12, Plavix, vitamin D3, Coreg, aspirin, cyclosporine drops, tobramycin dexamethasone drops, Crestor, Protonix, omega-3 fatty acids, multivitamin, losartan, valacyclovir. ALLERGIES: Penicillin. FAMILY HISTORY: Per chart review, includes atherosclerotic vascular disease. SOCIAL HISTORY: Patient is . She is planning on moving back to [facility] for better support. She quit smoking about 20 years ago. REVIEW OF SYSTEMS: Ten-point review of systems performed and negative aside from that in the HPI. PHYSICAL EXAMINATION: GENERAL: Reveals a 76-year-old female who is alert and oriented x3 and in no acute distress. HEENT: Normocephalic, atraumatic. Mucous membranes moist. No scleral icterus. CHEST: Clear to auscultation bilaterally. CARDIAC: Regular rate and rhythm. ABDOMEN: Soft, nontender. EXTREMITIES: Warm and dry. No edema. Right leg slightly cool with no major color changes. No palpable right pedal pulses. Audible on Doppler, right DP worse than right PT. No ulcerations. No rubor or erythema. Left foot with palpable pedal pulses, warm, well perfused. PSYCH: Normal mood and affect. SKIN: Warm and dry. IMPRESSION: This is a 76-year-old female with progressive right leg peripheral vascular disease, now with an occluded stent. PLAN: Patient is being admitted to the hospitalist service and cardiology is consulting. She will likely need a revascularization surgery. We will obtain baseline arterial studies and an ultrasound for possible saphenous graft harvesting. She will likely need a right below-knee femoral-popliteal bypass, hopefully with her enterprise vein. Plan for surgery on Sunday, 05/02. Risks and options have been discussed including, but not limited to, bleeding, infection, injury to nerve, clotting, damage to surrounding structures, worsening ischemia , and even limb loss, and she requests to proceed as soon as it is safe. /[id number]/MODL MTDD
--- NOTE | 2017-05-01 09:27 | SOAPPROG ---
JORGITO Progress Note Assessment/Plan: Assess 76-year-old female with limiting claudication and early rest pain on her right leg secondary to popliteal artery occlusion Patient is had 3 angioplasties and stent placements and her popliteal and distal superficial femoral artery over the last the 3-4 year. She has persistent calf claudication with walking less than walk CT angiogram shows adequate runoff in the infrapopliteal vessels. Toes viable with no skin lesions but decreased Doppler pulses on the right compared to palpable strong pulses on the left Chest clear/cor regular rhythm/carotids without bruits/neuro exam physiologic Plan: Cardiac clearance/noninvasive arterial studies/saphenous vein mapping/ than right fem-pop bypass with reverse saphenous vein/risks and options fully discussed 04/30/17 14:03 05/01/17 09:26 VEIN STUDY SEEMS ADEQUATE, ART STUDIES SHOW SIGNIFICANT ISCHEMIA/ PLAN FEM- POP IN AM Objective: Vital Signs Temp Pulse Resp BP Pulse Ox 36.6 C 72 16 137/66 H 92 05/01/17 08:00 05/01/17 08:00 05/01/17 08:00 05/01/17 08:00 05/01/17 08:00 Laboratory Results 05/01/17 06:25 05/01/17 06:25 04/30/17 05/01/17 05/02/17 05:59 05:59 05:59 Intake Total 1040 Output Total 1600 100 Balance -560 -100 PT 14.7 SEC (12.0-15.0) 05/01/17 06:25 INR 1.13 (0.83-1.16) 05/01/17 06:25 ICD10 Worksheet Patient Problems: Problems Problem Status Onset Claudication of right lower extremity Acute Rest pain of right lower extremity concurrent with and due to atherosclerosis of bypass graft Acute Stenosis of right popliteal artery Acute CAD (coronary artery disease) Acute
[2017-05-01] MEDS: valACYclovir 500 MG TAB PO SCH ×2 (09:48→18:40)
[2017-05-01] MEDS: CARVEDILOL 6.25 MG TAB PO SCH ×2 (09:48→18:40)
[2017-05-01] MEDS: CHOLECALCIFEROL VIT D3 1,000 UNITS TAB PO SCH (09:49)
[2017-05-01] MEDS: PANTOPRAZOLE SODIUM 40 MG TAB PO SCH (09:49)
[2017-05-01] MEDS: MULTIVITAMINS 1 EACH TAB PO SCH (09:49)
[2017-05-01] MEDS: CYANO/VITAMIN B12 1000 MCG TAB PO SCH (09:49)
[2017-05-01] MEDS: LOSARTAN POTASSIUM 25 MG TAB PO SCH ×2 (09:50→19:59)
[2017-05-01] MEDS: HEPARIN 5,000 UNIT/0.5 ML SYR SC SCH (09:50)
[2017-05-01] MEDS: OMEGA-3 ETHYL EST-LOVAZA 1 GM CAP PO SCH (09:50)
[2017-05-01] MEDS: cycloSPORINE 0.05% 30 DROPERETTE/BOX EACHEYE SCH ×2 (09:50→21:49)
[2017-05-01] MEDS: FUROSEMIDE 20 MG TAB PO SCH (10:49)
--- NOTE | 2017-05-01 11:53 | ASMTCASEMG ---
Living Arrangements What is your living Answers: Alone arrangement? Who do you live with? Type Of Residence What kind of residence do Answers: House you live in? Discharge Plan Comments Coordination Status Comments Notes: Patient is a 76yo female who was admitted for bypass surgery due to continued reoccurances after previous percutaneous procedures. PT/OT have been ordered. D/C needs TBD. CM will follow. Date Signed: 05/01/2017 11:52 AM Electronically Signed By:Erma Jean LCSW
[2017-05-01] MEDS: TOBRAMYCIN/DEXAMETH 5 ML OPHT.BTL LEFTEYE SCH (11:57)
--- NOTE | 2017-05-01 14:24 | PDMN ---
Medical Necessity Medical necessity: est los>2mn for rapidly progressive worsening of RLE claudication, with occlusion of previous pop/fem artery stents; admit for bypass surgery; comorbid CAD, pulmonary sarcoidosis, anemia, hld, and htn; per order and H&P 04/30/17
--- NOTE | 2017-05-01 15:54 | HOSPPROG ---
Hospitalist Progress Note Assessment/Plan: DIAGNOSES: -rapidly progressive R leg claudication to now rest pain -occlusion of R SFA and R popliteal stents -thrombocytopenia, improving -anemia -hx of DVT of leg after a surgery -Hx [place]/CAD/Stent -Hyperlipidemia on med -HTN -Pulmonary Sarcoidosis PLANS: -FemPop Bypass surgery planned for tomorrow -will continue to follow postop -anticipate she may need intensive care for monitoring postop SUBJECTIVE: Patient feels better today after resting her leg, no cardiac pulmonary or febrile symptoms, eating well OBJECTIVE Vitals reviewed: Stable without fever Exam: alert oriented skin warm dry color ok resps not labored lungs clear BSs heart regular abd soft nondistended nontender, bowel sounds present limbs pulseless feet but no acute ischemic or necrotic changes iv site ok Laboratory data: Stable CBC and metabolic panel Objective: Vital Signs Temp Pulse Resp BP Pulse Ox 37.2 C 90 16 116/93 H 92 05/01/17 11:21 05/01/17 11:21 05/01/17 11:21 05/01/17 11:21 05/01/17 11:21 Laboratory Results 05/01/17 06:25 05/01/17 06:25 04/30/17 05/01/17 05/02/17 06:59 06:59 06:59 Intake Total 1040 Output Total 1700 Balance -660 PT 14.7 SEC (12.0-15.0) 05/01/17 06:25 INR 1.13 (0.83-1.16) 05/01/17 06:25 ICD10 Worksheet Patient Problems: Problems Problem Status Onset Claudication of right lower extremity Acute Rest pain of right lower extremity concurrent with and due to atherosclerosis of bypass graft Acute Stenosis of right popliteal artery Acute CAD (coronary artery disease) Acute
[2017-05-01] MEDS: ASPIRIN EC 81 MG TAB PO SCH (19:59)
[2017-05-01] MEDS: ROSUVASTATIN CALCIUM 20 MG TAB PO SCH (20:00)
[2017-05-02 05:57] LABS: PLATELET COUNT 168 10^3/uL (150-400)
[2017-05-02] MEDS: LOSARTAN POTASSIUM 25 MG TAB PO SCH ×2 (08:07→21:31)
[2017-05-02] MEDS: PANTOPRAZOLE SODIUM 40 MG TAB PO SCH (08:07)
[2017-05-02] MEDS: valACYclovir 500 MG TAB PO SCH ×2 (08:08→23:20)
[2017-05-02] MEDS: CARVEDILOL 6.25 MG TAB PO SCH ×2 (08:08→18:46)
[2017-05-02] MEDS: CHOLECALCIFEROL VIT D3 1,000 UNITS TAB PO SCH (08:32)
[2017-05-02] MEDS: CYANO/VITAMIN B12 1000 MCG TAB PO SCH (08:32)
[2017-05-02] MEDS: cycloSPORINE 0.05% 30 DROPERETTE/BOX EACHEYE SCH ×2 (08:33→21:29)
[2017-05-02] MEDS: MULTIVITAMINS 1 EACH TAB PO SCH (08:36)
[2017-05-02] MEDS ORDERED: CLINDAMYCIN 900 MG/DEXTROSE 50 ML IV ONE (09:00)
[2017-05-02] MEDS ORDERED: LIDOCAINE 1% 2 ML INJ ID PRN (10:09)
[2017-05-02] MEDS ORDERED: LR 1,000 ML IV ONE (10:09)
--- NOTE | 2017-05-02 10:21 | SOAPPROG ---
SOAP Progress Note Assessment/Plan: Assessment/Plan: 76 Y F c CAD and a stent, PAD with multiple R leg angioplasties , here for resting R leg claudication. To OR today for R below knee fempop bypass, possible saphenous vein harvesting. Risks and options and expectations discussed in detail. Consent in chart. Pre op abx ordered. NPO. Hold anticoagulants. Patient will most likely go to ICU per routine afterwards. S: still some pain in right leg. O: alert, nad ncat ctab rrr abd soft no palpable R pedal pulses, +palpable L pedal pulses 05/02/17 10:18 Objective: Vital Signs Temp Pulse Resp BP Pulse Ox 37.1 C 87 16 111/60 94 05/02/17 03:48 05/02/17 03:48 05/02/17 03:48 05/02/17 09:36 05/02/17 03:48 Laboratory Results 05/02/17 05:30 05/02/17 05:30 05/01/17 05/02/17 05/03/17 05:59 05:59 05:59 Intake Total 1040 0 Output Total 1600 100 Balance -560 -100 PT 14.7 SEC (12.0-15.0) 05/01/17 06:25 INR 1.13 (0.83-1.16) 05/01/17 06:25 ICD10 Worksheet Patient Problems: Problems Problem Status Onset Claudication of right lower extremity Acute Rest pain of right lower extremity concurrent with and due to atherosclerosis of bypass graft Acute Stenosis of right popliteal artery Acute CAD (coronary artery disease) Acute
[2017-05-02] MEDS ORDERED: PAPAVERINE HCL 60 MG/2 ML SDV ONE (10:46)
[2017-05-02] MEDS ORDERED: IOTHALAMATE MEG (CONRAY) 50 ML VIAL IV ONE (10:46)
[2017-05-02] MEDS ORDERED: PROTAMINE SULFATE 50 MG/5 ML VIAL IVP ONE (10:46)
[2017-05-02] MEDS ORDERED: BUPIVACAINE 0.5% 30 ML SDV ONE (10:46)
[2017-05-02] MEDS ORDERED: SURGIFLO MATRIX KIT WITH THROMBIN 8ml TP ONE (11:35)
[2017-05-02] MEDS ORDERED: fentaNYL 100 MCG/2 ML INJ ONE ×4 (12:39→17:21)
[2017-05-02] MEDS ORDERED: PROPOFOL/EMULSION 500 MG/50 ML BOTTLE IV ONE (12:41)
[2017-05-02] MEDS ORDERED: HYDROmorphONE/DILAUDID 1 MG/ML INJ IVP PRN ×2 (14:09→16:46)
[2017-05-02] MEDS ORDERED: NALOXONE HCL 0.4 MG/ML INJ IVP PRN (14:09)
[2017-05-02] MEDS ORDERED: DEXAMETHASONE 4 MG/ML VIAL IVP PRN (14:09)
[2017-05-02] MEDS ORDERED: ONDANSETRON 4 MG/2 ML VIAL IVP PRN (14:09)
[2017-05-02] MEDS ORDERED: LABETALOL HCL 5 MG/ML 20 ML MDV IVP PRN (14:09)
[2017-05-02] MEDS ORDERED: ALBUTEROL 3 ML DEYVIAL IH PRN (14:09)
--- NOTE | 2017-05-02 14:09 | PDANEPAE ---
ANE History of Present Illness here for fem pop bypass ANE Past Medical History - Cardiovascular History Hx Hypertension: Yes Hx Arrhythmias: No Hx Chest Pain: No Hx Coronary Artery / Peripheral Vascular Disease: Yes Hx CHF / Valvular Disease: No Hx Palpitations: No - Pulmonary History Hx COPD: Yes Hx Asthma/Reactive Airway Disease: No Hx Recent Upper Respiratory Infection: No Hx Oxygen in Use at Home: Yes O2 in Use at Home (L/minute): 2 Hx Sleep Apnea: No Sleep Apnea Screening Result - Last Documented: Positive - Endocrine History Hx Diabetes: No - Chronic Pain History Chronic Pain: No ANE Review of Systems Review of systems is: negative Review of Systems: - Exercise capacity Exercise capacity: <4 METS ANE Patient History - Allergies Allergies/Adverse Reactions: Penicillins Allergy (Intermediate, Verified 08/11/15 07:03) JUNIOR ZARATE - Home Medications Home medications: home medication list seen and reviewed Home Medications: Carvedilol [Coreg (*)] 12.5 mg PO BIDMEAL 01/19/15 [Last Taken 04/30/17] Cholecalciferol Vit D3 [Vitamin D3 (*)] 2,000 units PO DAILY 01/19/15 [Last Taken 04/29/17] Cyanocobalamin [Vitamin B12 (*)] 1,500 mcg PO DAILY 01/19/15 [Last Taken ] Herbals/Supplements -Info Only 1 ea PO DAILY 01/19/15 [Last Taken Unknown] Losartan Potassium [Cozaar 25 mg (*)] 12.5 mg PO BID 01/19/15 [Last Taken ] Multivitamins [Multivitamin (*)] 1 each PO DAILY 01/19/15 [Last Taken 04/29/17] Niland-3 Ethyl Est-Lovaza [Lovaza 1 gm (*)] 1 gm PO BID 01/19/15 [Last Taken 02/03 21:00] Pantoprazole Sodium [Protonix 40mg (*)] 40 mg PO DAILY 01/19/15 [Last Taken 03/05] Rosuvastatin Calcium [Crestor 20mg (*)] 20 mg PO HS 01/19/15 [Last Taken ] cycloSPORINE 0.05% [Restasis Opht Drops(*)] 1 drop EACHEYE BID 01/19/15 [Last Taken 04/30/17] valACYclovir [Valtrex (*)] 500 mg PO BID 01/19/15 [Last Taken 04/30/17] Furosemide [Lasix 20 MG (*)] 20 mg PO Q2D 01/19/16 [Last Taken 04/29/17] Aspirin EC [Aspirin EC 81 mg (*)] 81 mg PO HS 05/29/16 [Last Taken 04/29/17] Acetaminophen [Tylenol ES 500 mg (*)] 1,000 mg PO HS 04/30/17 [Last Taken ] Albuterol [Proventil Inhaler HFA (*)] 2 puffs IH DAILY PRN 04/30/17 [Last Taken 04/29/17] Tobramycin/Dexameth [Tobradex opht drops (*)] 1 drops LEFTEYE Q2D 04/30/17 [ Last Taken 04/29/17] - NPO status NPO Status: no food or drink >8 hours NPO Since - Liquids (Date): 05/01/17 NPO Since - Liquids (Time): 20:00 NPO Since - Solids (Date): 05/01/17 NPO Since - Solids (Time): 20:00 - Smoking Hx Smoking Status: Former smoker ANE Labs/Vital Signs - Labs Result Diagrams: 05/02/17 05:30 05/02/17 05:30 - Vital Signs Vital Signs: reviewed preoperatively; see RN documention for details Blood Pressure: 143/74 Heart Rate: 75 Respiratory Rate: 16 O2 Sat (%): 94 Height: 170.18 cm Weight: 76.204 kg ANE Physical Exam - Airway Neck exam: FROM Mallampati Score: Class 1 - Pulmonary Pulmonary: no respiratory distress - Cardiovascular Cardiovascular: regular rate and rhythym - ASA Status ASA Status: III ANE Anesthesia Plan Anesthesia Plan: GA w LMA Lines/Monitors: additional IV
--- NOTE | 2017-05-02 15:01 | ASMTCMCOM ---
CM Note CM Note Notes: Pt at [facility] [place] today for fem-pop bypass. Pt lives alone. DC needs not clear yet. CM will follow. Date Signed: 05/02/2017 02:56 PM Electronically Signed By:Yaneth Raymundo RN
[2017-05-02] MEDS: THROMBIN (BOVINE) 20,000 UNIT SPRAY TP ONE ×2 (15:11→16:12)
[2017-05-02] MEDS ORDERED: PROPOFOL 200 MG/20 ML VIAL ONE (15:38)
[2017-05-02] MEDS ORDERED: METOPROLOL TARTRATE 5 MG/5 ML INJ ONE (16:26)
[2017-05-02] MEDS ORDERED: BISACODYL 10 MG SUPP PR PRN (16:46)
[2017-05-02] MEDS ORDERED: MAGNESIUM HYDROXIDE 30 ML UDCUP PO PRN (16:46)
[2017-05-02] MEDS ORDERED: LACTULOSE 20 GM/30 ML UDCUP PO PRN (16:46)
[2017-05-02] MEDS ORDERED: POLYETHYLENE GLYCOL 3350 17 GM PKT PO PRN (16:46)
--- NOTE | 2017-05-02 16:47 | POSTANESTH ---
Post Anesthetic Evaluation Cardiovascular Status: Normal, Stable Respiratory Status: Normal, Stable Level of Consciousness/Mental Status: Can Participate in Eval Pain Control: Adequate, Prn Tx Ordered Nausea/Vomiting Control: Adequate, Prn Tx Ordered Complications Possibly Related to Anesthesia: None Noted
--- NOTE | 2017-05-02 16:50 | POSTOPPROG ---
Post Op Note Date of Operation: 05/02/17 Surgeon: Alonso Steele Pretzel Twister: Kriss Martinez Anesthesiologist: Geoff Fisher Anesthesia: GET(General Endotracheal) Pre-op Diagnosis: R leg claudication, rest pain, PVD c distal SFA and popliteal occlusions Post-op Diagnosis: same Indication: 76 Y F PVD hx of angioplasties and stent, now c rest pain & a. occlusion Procedure: R below knee fem pop bypass c R reverse saphenous vein graft Findings: palpable pedal pulses post procedure. soft artery at bypass anastomoses Inf/Abcess present in the surg proc area at time of surgery?: No EBL: 200cc Complications: none Specimen(s): none
[2017-05-02] MEDS ORDERED: NS W/ 20 KCl/L 1,000 ML IV SCH (17:00)
[2017-05-02] MEDS: fentaNYL 100 MCG/2 ML INJ IVP PRN ×2 (17:22→17:44)
--- NOTE | 2017-05-02 17:48 | HOSPPROG ---
Hospitalist Progress Note Assessment/Plan: # Right SFA occlusion -planning for fem-pop bypass today- claudication stable CTA aorta with runoff (personally reviewed and interpreted) shows occlusion of superior SFA stent and popliteal stent Oxygen saturations 94% on 1 L - NPO - IV fluid - transfer to ICU postop # history of coronary artery disease-no chest pain complaints-continue home aspirin, beta-henrietta, ARB # hypertension-adequate control on home meds- creatinine 0.7 # prophylaxis per surgery # NPO I have discussed the case with the RN patient planning for OR today remains NPO Subjective: Denies chest pain Objective: Vital Signs Temp Pulse Resp BP Pulse Ox 36.1 C 75 16 143/74 H 96 05/02/17 17:29 05/02/17 14:08 05/02/17 14:08 05/02/17 14:08 05/02/17 17:05 Laboratory Results 05/02/17 05:30 05/02/17 05:30 05/01/17 05/02/17 05/03/17 05:59 05:59 05:59 Intake Total 1040 0 1650 Output Total 1600 100 350 Balance -560 -100 1300 PT 14.7 SEC (12.0-15.0) 05/01/17 06:25 INR 1.13 (0.83-1.16) 05/01/17 06:25 - Physical Exam Constitutional: appears nourished Eyes: anicteric sclera Ears, Nose, Mouth, Throat: moist mucous membranes Cardiovascular: regular rate and rhythym Respiratory: no respiratory distress Gastrointestinal: normoactive bowel sounds, soft, non-tender abdomen Genitourinary: no bladder fullness Skin: warm Musculoskeletal: No asymmetric calves Neurologic: AAOx3 Psychiatric: interacting appropriately Lymph, Heme, Immunologic: no cervical LAD ICD10 Worksheet Patient Problems: Problems Problem Status Onset Claudication of right lower extremity Acute Rest pain of right lower extremity concurrent with and due to atherosclerosis of bypass graft Acute Stenosis of right popliteal artery Acute CAD (coronary artery disease) Acute
[2017-05-02] MEDS: HYDROCODONE/APAP 5/325 TAB PO PRN ×2 (21:34→22:49)
[2017-05-02] MEDS: ASPIRIN EC 81 MG TAB PO SCH (22:49)
[2017-05-02] MEDS: SENNOSIDES/DOCUSATE SODIUM TAB PO SCH (22:49)
[2017-05-02] MEDS: ROSUVASTATIN CALCIUM 20 MG TAB PO SCH (22:49)
[2017-05-03] MEDS: HYDROCODONE/APAP 5/325 TAB PO PRN ×3 (02:22→23:19)
[2017-05-03] MEDS: PANTOPRAZOLE SODIUM 40 MG TAB PO SCH (09:42)
[2017-05-03] MEDS: LOSARTAN POTASSIUM 25 MG TAB PO SCH ×2 (09:42→19:46)
[2017-05-03] MEDS: CYANO/VITAMIN B12 1000 MCG TAB PO SCH (09:43)
[2017-05-03] MEDS: FUROSEMIDE 20 MG TAB PO SCH (09:43)
[2017-05-03] MEDS: CHOLECALCIFEROL VIT D3 1,000 UNITS TAB PO SCH (09:43)
[2017-05-03] MEDS: CARVEDILOL 6.25 MG TAB PO SCH ×2 (09:43→18:07)
[2017-05-03] MEDS: SENNOSIDES/DOCUSATE SODIUM TAB PO SCH ×2 (09:43→19:47)
[2017-05-03] MEDS: MULTIVITAMINS 1 EACH TAB PO SCH (09:43)
[2017-05-03] MEDS: TOBRAMYCIN/DEXAMETH 5 ML OPHT.BTL LEFTEYE SCH (09:44)
[2017-05-03] MEDS: cycloSPORINE 0.05% 30 DROPERETTE/BOX EACHEYE SCH ×2 (09:44→19:46)
[2017-05-03] MEDS: valACYclovir 500 MG TAB PO SCH ×2 (09:51→20:24)
--- NOTE | 2017-05-03 12:53 | GCON ---
[f rep st] CONSULTATION PULMONARY CRITICAL CARE CONSULTATION DATE OF CONSULTATION: 05/03/2017 HISTORY OF PRESENT ILLNESS: This patient is a 76-year-old female with a known history of peripheral arterial disease, who had increasing claudication and was found to have a stenosis, and subsequently underwent a femoral popliteal bypass by Dr. Steele yesterday without complications. She also has a hi story of pulmonary sarcoid, evaluated and treated in the past at [facility], as well as by Dr. Jeffrey simmons. She has been stable from that perspective, and has a history of COPD as well, but has very fe w inhaler requirements. REVIEW OF SYSTEMS: Otherwise negative. PAST MEDICAL HISTORY: Includes: 1. Coronary artery disease with myocardial infarction in the past. 2. COPD. 3. Hypertension. 4. Cardiomyopathy. 5. Hypoxemia. 6. Pulmonary hypertension. 7. Peripheral arterial disease. PAST SURGICAL HISTORY: Includes corneal transplant, knee surgery, shoulder surgery, stent to the rig ht popliteal in May 2016, and cardiac stents in 1998. SOCIAL HISTORY: She is a former smoker and quit after her heart attack. No significant alcohol. FAMILY HISTORY: Noncontributory. CURRENT MEDICATIONS: Include [place], Proventil, aspirin, Dulcolax, Coreg, vitamin D, Restasis, Lasix, Dilaudid, Cozaar, Zofran, Protonix, MiraLAX, Crestor, tobramycin, Valtrex, Ambien p.r.n. PHYSICAL EXAM: VITAL SIGNS: She was afebrile. Heart rate of 96 and sinus rhythm. Respirations 18 with a sat of 93% on room air. Blood pressure 110/43. GENERAL APPEARANCE: She was an obese female, but awake, alert, and oriented x3 and able to speak in full sentences without using accessory muscle s for breathing. HEENT: Pupils equally round and reactive to light, nonicteric and noninjected. Mu cous membranes are moist without erythema or exudate. NECK: Supple without adenopathy or jugular ve in distention. RESPIRATORY: Breath sounds were clear to auscultation bilaterally without wheezes, r ubs, or rales. CARDIAC: Heart had a regular rate and rhythm without murmurs, rubs, or gallops. ABD OMEN: Soft, nontender, nondistended, without hepatosplenomegaly. EXTREMITIES: Show no clubbing, cy anosis, or edema. Her right foot was actually slightly warmer than the left foot with palpable pulse s. NEUROLOGIC: Nonfocal. SKIN: Warm and dry without obvious rashes. OBJECTIVE DATA: Includes a hematocrit of 29.6 today. Her CBC was otherwise normal yesterday. BNP w as essentially normal. ASSESSMENT/PLAN: 1. Peripheral arterial disease, status post redo of her femoral-popliteal. She appears to be doing quite well from that perspective without complication. 2. Sarcoid. This diagnosis was about a year and a half ago. She was initially complaining of visua l disturbances. A CT scan showed bulky adenopathy and she was subsequently seen at [facility]. Biopsies were performed, consistent with sarcoid. She was treated with prednisone at the time, but is not currently on steroids and there is no further workup required at this time. 3. Chronic obstructive pulmonary disease. This is also mild. I do not know what her FEV1 is, but a lbuterol as needed is reasonable at this time. /[id number]/MODL
--- NOTE | 2017-05-03 16:26 | ASMTCMCOM ---
CM Note CM Note Notes: Awaiting therapies to determine d/c plan. CM will follow. Date Signed: 05/03/2017 04:25 PM Electronically Signed By:Erma Jean LCSW
--- NOTE | 2017-05-03 16:31 | HOSPPROG ---
Hospitalist Progress Note Assessment/Plan: # Right SFA occlusion -s/p fem-pop bypass yesterday- POD#1 CTA aorta with runoff (personally reviewed and interpreted) shows occlusion of superior SFA stent and popliteal stent Oxygen saturations 94% on RA - NPO - IV fluid - transfer to ICU postop # history of coronary artery disease-no chest pain complaints-continue home aspirin, beta-henrietta, ARB # hypertension-adequate control on home meds- creatinine 0.7 # prophylaxis per surgery # NPO I have discussed the case with the RN patient planning for OR today remains NPO Objective: Vital Signs Temp Pulse Resp BP Pulse Ox 36.9 C 89 16 115/50 L 98 05/03/17 16:00 05/03/17 16:00 05/03/17 16:00 05/03/17 16:00 05/03/17 16:00 Laboratory Results 05/03/17 04:29 05/03/17 04:29 05/02/17 05/03/17 05/04/17 05:59 05:59 05:59 Intake Total 0 2888 Output Total 100 840 Balance -100 2048 PT 14.7 SEC (12.0-15.0) 05/01/17 06:25 INR 1.13 (0.83-1.16) 05/01/17 06:25 ICD10 Worksheet Patient Problems: Problems Problem Status Onset Claudication of right lower extremity Acute Rest pain of right lower extremity concurrent with and due to atherosclerosis of bypass graft Acute Stenosis of right popliteal artery Acute CAD (coronary artery disease) Acute
--- NOTE | 2017-05-03 17:10 | SOAPPROG ---
SOMORGAN Progress Note Assessment/Plan: Assessment: Assessment/Plan: 76 Y F c CAD and a stent, PAD with multiple R leg angioplasties , here for resting R leg claudication. S/p right fem/pop bypass with saphenous vein graft 05/02/17 S: Doing well overall. Pain well controlled. O: afebrile alert, nad ctab rrr abd soft Right leg: palpable pedal pulses, skin warm and dry Plan: Downgrade to med/surg status. Continue bedrest until tomorrow. Continue to monitor 05/03/17 17:06 Objective: Vital Signs Temp Pulse Resp BP Pulse Ox 36.9 C 89 16 115/50 L 98 05/03/17 16:00 05/03/17 16:00 05/03/17 16:00 05/03/17 16:00 05/03/17 16:00 Laboratory Results 05/03/17 04:29 05/03/17 04:29 05/02/17 05/03/17 05/04/17 05:59 05:59 05:59 Intake Total 0 2888 Output Total 100 840 Balance -100 2048 PT 14.7 SEC (12.0-15.0) 05/01/17 06:25 INR 1.13 (0.83-1.16) 05/01/17 06:25 ICD10 Worksheet Patient Problems: Problems Problem Status Onset Claudication of right lower extremity Acute Rest pain of right lower extremity concurrent with and due to atherosclerosis of bypass graft Acute Stenosis of right popliteal artery Acute CAD (coronary artery disease) Acute
--- NOTE | 2017-05-03 18:14 | PDCARPN ---
Cardiology Progress Note Assessment/Plan: 76-year-old female with history of CAD and PVD. Status post femoropopliteal bypass yesterday. Has a history of CAD with a remote anterior FL treated with PCI of the LAD. Cardiovascular status stable without evidence of angina, CHF, or arrhythmias. Stable from a cardiac standpoint for discharge once her surgical recovery status allows. Currently, she is scheduled for an office appointment at [facility] with Dr. Medina in mid-May. I have sent a request through our office EMR for the staff to contact her and move that appointment up. Will sign off. 05/03/17 18:11 Subjective: No complaints. Objective: Vital Signs (8 Hrs) Temp Pulse Resp BP Pulse Ox 05/03/17 18:07 91 115/50 L 05/03/17 16:00 36.9 C 89 16 115/50 L 98 05/03/17 12:00 90 16 106/40 L 94 Intake/Output (24 Hrs) 05/02/17 05/03/17 05/04/17 05:59 05:59 05:59 Intake Total 0 2888 Output Total 100 840 Balance -100 2048 Intake: Oral (ml) 0 290 IV Intake (ml) 1600 IV Infused (ml) 998 NS W/ 20 KCl/L 1,000 ml @ 998 100 mls/hr IV CONT SONJA Rx#:[id number] Output: Urine (ml) 100 690 Catheter 690 Toilet 100 Estimated Blood Loss (ml) 150 Other: Weight 76.204 kg Intake Quantity Yes Sufficient Result Diagrams: 05/03/17 04:29 05/03/17 04:29 - Physical Exam Constitutional: no apparent distress Eyes: anicteric sclera Ears, Nose, Mouth, Throat: moist mucous membranes Cardiovascular: regular rate and rhythm, no murmurs, no rubs, no gallops Respiratory: clear to auscultate bilat Gastrointestinal: normoactive bowel sounds, no tenderness, no masses Skin: no edema Neurologic: AAOx3 Psychiatric: not anxious ICD10 Worksheet Patient Problems: Problems Problem Status Onset Claudication of right lower extremity Acute Rest pain of right lower extremity concurrent with and due to atherosclerosis of bypass graft Acute Stenosis of right popliteal artery Acute CAD (coronary artery disease) Acute
[2017-05-03] MEDS: ROSUVASTATIN CALCIUM 20 MG TAB PO SCH ×2 (19:45→19:46)
[2017-05-03] MEDS: ASPIRIN EC 81 MG TAB PO SCH (19:46)
[2017-05-04] MEDS: HYDROCODONE/APAP 5/325 TAB PO PRN ×5 (04:32→22:19)
[2017-05-04] MEDS: SENNOSIDES/DOCUSATE SODIUM TAB PO SCH ×2 (08:59→20:05)
[2017-05-04] MEDS: CHOLECALCIFEROL VIT D3 1,000 UNITS TAB PO SCH (08:59)
[2017-05-04] MEDS: CYANO/VITAMIN B12 1000 MCG TAB PO SCH (08:59)
[2017-05-04] MEDS: CARVEDILOL 6.25 MG TAB PO SCH ×2 (09:00→18:02)
[2017-05-04] MEDS: MULTIVITAMINS 1 EACH TAB PO SCH (09:01)
[2017-05-04] MEDS: LOSARTAN POTASSIUM 25 MG TAB PO SCH ×2 (09:01→20:06)
[2017-05-04] MEDS: PANTOPRAZOLE SODIUM 40 MG TAB PO SCH (09:01)
[2017-05-04] MEDS: HEPARIN 5,000 UNIT/0.5 ML SYR SC SCH ×2 (09:02→20:07)
[2017-05-04] MEDS: cycloSPORINE 0.05% 30 DROPERETTE/BOX EACHEYE SCH ×2 (09:03→20:11)
--- NOTE | 2017-05-04 09:07 | SOAPPROG ---
JORGITO Progress Note Assessment/Plan: Assess 76-year-old female with limiting claudication and early rest pain on her right leg secondary to popliteal artery occlusion Patient is had 3 angioplasties and stent placements and her popliteal and distal superficial femoral artery over the last the 3-4 year. She has persistent calf claudication with walking less than walk CT angiogram shows adequate runoff in the infrapopliteal vessels. Toes viable with no skin lesions but decreased Doppler pulses on the right compared to palpable strong pulses on the left Chest clear/cor regular rhythm/carotids without bruits/neuro exam physiologic Plan: Cardiac clearance/noninvasive arterial studies/saphenous vein mapping/ than right fem-pop bypass with reverse saphenous vein/risks and options fully discussed 04/30/17 14:03 05/01/17 09:26 VEIN STUDY SEEMS ADEQUATE, ART STUDIES SHOW SIGNIFICANT ISCHEMIA/ PLAN FEM- POP IN AM 05/04/17 09:05 ALERT, COMFORTABLE/ AFEBRILE/ WOUNDS OK/ STRONG PEDAL PULSES/ MOBILIZE TODAY WITH PT AND DC YAHAIRA Objective: Vital Signs Temp Pulse Resp BP Pulse Ox 37.0 C 94 14 127/50 H 99 05/04/17 08:00 05/04/17 09:00 05/04/17 08:00 05/04/17 08:00 05/04/17 08:00 Laboratory Results 05/04/17 04:45 05/04/17 04:45 05/03/17 05/04/17 05/05/17 05:59 05:59 05:59 Intake Total 2888 2000 Output Total 840 1200 Balance 2048 800 PT 14.7 SEC (12.0-15.0) 05/01/17 06:25 INR 1.13 (0.83-1.16) 05/01/17 06:25 ICD10 Worksheet Patient Problems: Problems Problem Status Onset Claudication of right lower extremity Acute Rest pain of right lower extremity concurrent with and due to atherosclerosis of bypass graft Acute Stenosis of right popliteal artery Acute CAD (coronary artery disease) Acute
[2017-05-04] MEDS: valACYclovir 500 MG TAB PO SCH ×2 (09:11→20:04)
--- NOTE | 2017-05-04 14:50 | HOSPPROG ---
Hospitalist Progress Note Assessment/Plan: # Right SFA occlusion -s/p fem-pop bypass yesterday- POD#2 - excellent pulse and extremity is warm- H&H 11/13 CTA aorta with runoff (personally reviewed and interpreted) shows occlusion of superior SFA stent and popliteal stent Telemetry (personally reviewed and interpreted) sinus rhythm Oxygen saturations 94% on RA - tolerating p.o. Without difficulty - pain adequately controlled - increasing ambulation/activity today per Dr. Steele # history of coronary artery disease-no chest pain complaints-continue home aspirin, beta-henrietta, ARB # hypertension-adequate control on home meds- creatinine 0.7 # prophylaxis per surgery # NPO # disposition greater than 2 midnights patient is recovering well postop I have discussed the case with the RN - will increase activity per surgery recommendations Subjective: Improved pain control when using meds Objective: Vital Signs Temp Pulse Resp BP Pulse Ox 37.1 C 85 16 120/53 L 89 L 05/04/17 12:26 05/04/17 12:26 05/04/17 12:26 05/04/17 12:26 05/04/17 12:26 Laboratory Results 05/04/17 04:45 05/04/17 04:45 05/03/17 05/04/17 05/05/17 05:59 05:59 05:59 Intake Total 2888 2000 Output Total 840 1200 375 Balance 2048 800 -375 PT 14.7 SEC (12.0-15.0) 05/01/17 06:25 INR 1.13 (0.83-1.16) 05/01/17 06:25 - Physical Exam Constitutional: no apparent distress Eyes: anicteric sclera Ears, Nose, Mouth, Throat: moist mucous membranes Cardiovascular: regular rate and rhythym Respiratory: no respiratory distress Gastrointestinal: normoactive bowel sounds Genitourinary: no bladder fullness Skin: warm Musculoskeletal: No asymmetric calves Neurologic: AAOx3 Psychiatric: interacting appropriately Lymph, Heme, Immunologic: no cervical LAD ICD10 Worksheet Patient Problems: Problems Problem Status Onset Claudication of right lower extremity Acute Rest pain of right lower extremity concurrent with and due to atherosclerosis of bypass graft Acute Stenosis of right popliteal artery Acute CAD (coronary artery disease) Acute
[2017-05-04] MEDS: ROSUVASTATIN CALCIUM 20 MG TAB PO SCH (20:05)
[2017-05-04] MEDS: ASPIRIN EC 81 MG TAB PO SCH (20:05)
[2017-05-05 07:19] VITALS: RESP 16
--- NOTE | 2017-05-05 10:18 | SOAPPROG ---
JORGITO Progress Note Assessment/Plan: Assessment/Plan: - 76-year-old female status post right fem-pop bypass with reverse saphenous vein graft - patient is doing well today, states that most of her pain is low back in nature from sitting in the chair, denies having any incisional pain. - right lower extremity is warm, palpable DP pulse, staple lines clean dry and intact in the remainder of the leg is warm. I took down the dressings today, can replace as needed for weeping. - okay to get out of bed and walk, when lying or sitting leg needs to be extended and minimally bent, discussed this with the patient today. - patient is oral anticoagulants restarted, no signs of bleeding. - anticipate the patient will be here at least another couple days working with physical therapy 05/05/17 10:16 Subjective: Doing well, complains of low back pain from sitting in the chair in the bed. Patient eager to get out of bed and increase activity Objective: Vital Signs Temp Pulse Resp BP Pulse Ox 36.9 C 88 16 127/70 H 93 05/05/17 07:17 05/05/17 07:17 05/05/17 07:17 05/05/17 07:17 05/05/17 07:17 Laboratory Results 05/04/17 04:45 05/04/17 04:45 05/04/17 05/05/17 05/06/17 05:59 05:59 05:59 Intake Total 2000 300 Output Total 1200 875 Balance 800 -575 PT 14.7 SEC (12.0-15.0) 05/01/17 06:25 INR 1.13 (0.83-1.16) 05/01/17 06:25 ICD10 Worksheet Patient Problems: Problems Problem Status Onset Claudication of right lower extremity Acute Rest pain of right lower extremity concurrent with and due to atherosclerosis of bypass graft Acute Stenosis of right popliteal artery Acute CAD (coronary artery disease) Acute
[2017-05-05] MEDS: TOBRAMYCIN/DEXAMETH 5 ML OPHT.BTL LEFTEYE SCH (10:31)
[2017-05-05] MEDS: cycloSPORINE 0.05% 30 DROPERETTE/BOX EACHEYE SCH ×2 (10:32→21:50)
[2017-05-05] MEDS: CHOLECALCIFEROL VIT D3 1,000 UNITS TAB PO SCH (10:35)
[2017-05-05] MEDS: CYANO/VITAMIN B12 1000 MCG TAB PO SCH (10:35)
[2017-05-05] MEDS: CARVEDILOL 6.25 MG TAB PO SCH ×2 (10:35→18:45)
[2017-05-05] MEDS: FUROSEMIDE 20 MG TAB PO SCH (10:36)
[2017-05-05] MEDS: LOSARTAN POTASSIUM 25 MG TAB PO SCH ×2 (10:36→21:48)
[2017-05-05] MEDS: valACYclovir 500 MG TAB PO SCH ×2 (10:37→21:48)
[2017-05-05] MEDS: PANTOPRAZOLE SODIUM 40 MG TAB PO SCH (10:37)
[2017-05-05] MEDS: MULTIVITAMINS 1 EACH TAB PO SCH (10:37)
[2017-05-05] MEDS: SENNOSIDES/DOCUSATE SODIUM TAB PO SCH ×2 (10:37→23:35)
[2017-05-05] MEDS: HEPARIN 5,000 UNIT/0.5 ML SYR SC SCH ×2 (10:38→21:50)
--- NOTE | 2017-05-05 11:17 | HOSPPROG ---
Hospitalist Progress Note Assessment/Plan: #SFA occlusion: proximal occluded SFA stent/popliteal stent -s/p fem-pop bypass with reverse spah vein gftat 05/02 #CAD: no chest pain: resume home meds #HTN: controlled #Normocytic anemia: drop in H/H overnight. On ASA, SQH. Repeat H/H this afternoon #Lower back pain #h/o CAD: sartan, ASA, statin #Diet: regular #DVT ppx: SQH #Disp: warrants inpatient admission for serial labs, PT Subjective: pain in leg with standing Objective: Vital Signs Temp Pulse Resp BP Pulse Ox 36.9 C 90 16 147/78 H 93 05/05/17 07:17 05/05/17 10:35 05/05/17 07:17 05/05/17 10:35 05/05/17 07:17 Laboratory Results 05/04/17 04:45 05/04/17 04:45 05/04/17 05/05/17 05/06/17 05:59 05:59 05:59 Intake Total 2000 300 300 Output Total 1200 875 600 Balance 800 -575 -300 PT 14.7 SEC (12.0-15.0) 05/01/17 06:25 INR 1.13 (0.83-1.16) 05/01/17 06:25 - Physical Exam Constitutional: no apparent distress Eyes: PERRL Ears, Nose, Mouth, Throat: moist mucous membranes Cardiovascular: regular rate and rhythym Respiratory: no respiratory distress, no rales or rhonchi Gastrointestinal: normoactive bowel sounds, soft, non-tender abdomen Musculoskeletal: other (right groin, leg incisions stapled, healing well) Neurologic: AAOx3, CN II-XII Intact Psychiatric: interacting appropriately ICD10 Worksheet Patient Problems: Problems Problem Status Onset Claudication of right lower extremity Acute Rest pain of right lower extremity concurrent with and due to atherosclerosis of bypass graft Acute Stenosis of right popliteal artery Acute CAD (coronary artery disease) Acute
--- NOTE | 2017-05-05 13:12 | GOP ---
[f rep st] OPERATIVE REPORT DATE OF OPERATION: 05/02/2017 SURGEON: Alonso Steele MD [employer] WORKER: RICKEY Avilez ANESTHESIOLOGIST: Dr. Fisher. PREOPERATIVE DIAGNOSIS: Right leg ischemia with occluded popliteal artery. POSTOPERATIVE DIAGNOSIS: Right leg ischemia with occluded popliteal artery. PROCEDURE PERFORMED: RIGHT FEM-POP BYPASS WITH REVERSED SAPHENOUS VEIN GRAFT FINDINGS: The patient was found to have occluded long segment of the distal superficial femoral artery and popliteal artery. She had an adequate saphenous vein for bypass and had full distal pulses after completion of the bypass. ESTIMATED BLOOD LOSS: Less than 200 cc. DESCRIPTION OF PROCEDURE: The patient was taken to the operating room where she received satisfactory general endotracheal anesthesia. She was placed in the supine position, prepped and draped in the usual sterile fashion, was well draped freely. Short incision was made in the proximal leg. Dissection was carried down into the popliteal space. Muscles were retracted and the popliteal artery was dissected free from surrounding neurovascular elements and encircled with a vessel loop. Incision was made above the knee in the adductor canal and dissection extended down to the superficial femoral artery and popliteal artery, however it was occluded at that level and a soft pulsatile portion of the artery could not be reached. We felt necessary then to go all the way to the groin for access. Vertical groin incision was made and dissection carried down through subcutaneous tissue. Hemostasis was obtained with electrocautery and 3-0 Vicryl ties. The common femoral, superficial femoral, profunda femoris arteries were dissected free and controlled with vessel loops. A longitudinal incision was then made along the medial side of the leg with intermittent skin sparing and the saphenous vein was mobilized and dissected free. Multiple branches were ligated and divided and the vein was extended, dissection extended well down into the calf. Adequate length was obtained. The vessel was ligated at the middle fossa ovalis with 2-0 silk ties. The vein was then reversed. It was distended with saline and any leak spots were corrected. The patient was systemically heparinized. End-to-side anastomosis was then made in the popliteal space to the popliteal artery creating a 1.5 cm anastomosis. The suture line was tested and appeared to be quite hemostatic. The vein graft was then passed through the popliteal space to the adductor canal incision and then passed subsartorially to the groin. It was distended with saline and assured that there were no significant kinks or twists. Proximal anastomosis was then made to the common femoral artery using a running 6-0 Prolene suture. Flow was first established through the profunda and through the primary [place] SFA and then through the bypass graft. All vessels had been flushed prior to completion of the anastomosis and she had a good pulsatile flow in the graft and eventually in the feet below with pinking up of her right foot. Wounds were all irrigated. Hemostasis was assured. The wounds were then all closed in layers using 2-0 Vicryl for the fascia, 3-0 Vicryl for the subcu, and skin son for the skin. All layers were infiltrated with 0.5% Marcaine and some topical thrombin was sprayed on the incisions. The long saphenous vein incision was closed in a similar manner. She tolerated the procedure well. COMPLICATIONS: There were no complications. /[id number]/MODL MTDD
[2017-05-05] MEDS: HYDROCODONE/APAP 5/325 TAB PO PRN ×2 (18:44→21:47)
[2017-05-05] MEDS: ASPIRIN EC 81 MG TAB PO SCH (21:48)
[2017-05-05] MEDS: ROSUVASTATIN CALCIUM 20 MG TAB PO SCH (21:49)
--- NOTE | 2017-05-06 08:38 | HOSPPROG ---
Hospitalist Progress Note Assessment/Plan: #SFA occlusion: proximal occluded SFA stent/popliteal stent -s/p fem-pop bypass with reverse spah vein gftat 05/02 #acute blood loss anemia: -200cc EBL in surgery -H/H Hb down to 7.8 from 8.3. Denies black stools. No increased pain/hematoma in leg. BP stable.. Hold ASA/Heparin. Repeat H/H stable #CAD: no chest pain: resume home meds #HTN: controlled #Normocytic anemia: drop in H/H overnight. On ASA, SQH. Repeat H/H this afternoon #Lower back pain #h/o CAD: sartan, ASA, statin #Diet: regular #DVT ppx: SQH #Disp: Dc home with home care, PT OT, RN. FU Dr. Steele in 1 week Subjective: no dizziness. No black or blood stools Objective: Vital Signs Temp Pulse Resp BP Pulse Ox 37.0 C 94 16 145/67 H 93 05/05/17 21:56 05/05/17 21:56 05/05/17 21:56 05/05/17 21:56 05/05/17 21:56 Laboratory Results 05/06/17 05:08 05/06/17 05:08 05/05/17 05/06/17 05/07/17 05:59 05:59 05:59 Intake Total 300 550 Output Total 875 1200 Balance -575 -650 PT 14.7 SEC (12.0-15.0) 05/01/17 06:25 INR 1.13 (0.83-1.16) 05/01/17 06:25 - Physical Exam Constitutional: no apparent distress Eyes: PERRL Ears, Nose, Mouth, Throat: moist mucous membranes Cardiovascular: regular rate and rhythym Respiratory: no respiratory distress Gastrointestinal: normoactive bowel sounds Genitourinary: no bladder fullness Musculoskeletal: other (right groin/leg wound stapled. Minimal oozing at distal portion. No purulence or surrounding) Neurologic: AAOx3, CN II-XII Intact Psychiatric: interacting appropriately ICD10 Worksheet Patient Problems: Problems Problem Status Onset Claudication of right lower extremity Acute Rest pain of right lower extremity concurrent with and due to atherosclerosis of bypass graft Acute Stenosis of right popliteal artery Acute CAD (coronary artery disease) Acute
[2017-05-06 08:39] VITALS: BP 129/63; TEMP 98.8; O2SAT 92
--- NOTE | 2017-05-06 09:02 | SOAPPROG ---
[facility] Progress Note Assessment/Plan: Assessment/Plan: - 76-year-old female status post right fem-pop bypass with reverse saphenous vein graft - Lo wback pain better - She has been OOB and ambulating with walker and working with PT/OT - ASA, statin - RLE is warm with bounding DP pulse, incisions are clean with minimal weeping - leg elevated at all times with minimal hip and knee flexion, she understands - Pt wants to go home, havent seen formal PT recs but making progress each day 05/05/17 10:16 05/06/17 09:00 Subjective: back pain better, still has some incisional pain Objective: Vital Signs Temp Pulse Resp BP Pulse Ox 37.1 C 92 16 129/63 H 92 05/06/17 08:00 05/06/17 08:00 05/06/17 08:00 05/06/17 08:00 05/06/17 08:00 Laboratory Results 05/06/17 05:08 05/06/17 05:08 05/05/17 05/06/17 05/07/17 05:59 05:59 05:59 Intake Total 300 550 Output Total 875 1200 Balance -575 -650 PT 14.7 SEC (12.0-15.0) 05/01/17 06:25 INR 1.13 (0.83-1.16) 05/01/17 06:25 ICD10 Worksheet Patient Problems: Problems Problem Status Onset Claudication of right lower extremity Acute Rest pain of right lower extremity concurrent with and due to atherosclerosis of bypass graft Acute Stenosis of right popliteal artery Acute CAD (coronary artery disease) Acute
[2017-05-06] MEDS: CHOLECALCIFEROL VIT D3 1,000 UNITS TAB PO SCH (09:30)
[2017-05-06] MEDS: CARVEDILOL 6.25 MG TAB PO SCH (09:30)
[2017-05-06] MEDS: CYANO/VITAMIN B12 1000 MCG TAB PO SCH (09:30)
[2017-05-06] MEDS: cycloSPORINE 0.05% 30 DROPERETTE/BOX EACHEYE SCH (09:31)
[2017-05-06] MEDS: MULTIVITAMINS 1 EACH TAB PO SCH (09:32)
[2017-05-06] MEDS: LOSARTAN POTASSIUM 25 MG TAB PO SCH (09:32)
[2017-05-06] MEDS: PANTOPRAZOLE SODIUM 40 MG TAB PO SCH (09:32)
[2017-05-06] MEDS: SENNOSIDES/DOCUSATE SODIUM TAB PO SCH (09:33)
[2017-05-06] MEDS: valACYclovir 500 MG TAB PO SCH (09:33)
[2017-05-06 09:39] VITALS: PULSE 94
[2017-05-06] MEDS: HYDROCODONE/APAP 5/325 TAB PO PRN (09:57)
--- NOTE | 2017-05-06 13:54 | PDIAF ---
- Diagnosis Diagnosis: PAD, s/p fem-pop bypass - Medication Management Discharge Medications: Medications to Continue on Transfer Carvedilol [Coreg (*)] 12.5 mg PO BIDMEAL 01/19/15 [Last Taken 04/30/17] Cholecalciferol Vit D3 [Vitamin D3 (*)] 2,000 units PO DAILY 01/19/15 [Last Taken 04/29/17] Cyanocobalamin [Vitamin B12 (*)] 1,500 mcg PO DAILY 01/19/15 [Last Taken ] Herbals/Supplements -Info Only 1 ea PO DAILY 01/19/15 [Last Taken Unknown] Losartan Potassium [Cozaar 25 mg (*)] 12.5 mg PO BID 01/19/15 [Last Taken ] Multivitamins [Multivitamin (*)] 1 each PO DAILY 01/19/15 [Last Taken 04/29/17] [place]-3 Ethyl Est-Lovaza [Lovaza 1 gm (*)] 1 gm PO BID 01/19/15 [Last Taken 02/03 21:00] Pantoprazole Sodium [Protonix 40mg (*)] 40 mg PO DAILY 01/19/15 [Last Taken 03/05] Rosuvastatin Calcium [Crestor 20mg (*)] 20 mg PO HS 01/19/15 [Last Taken ] cycloSPORINE 0.05% [Restasis Opht Drops(*)] 1 drop EACHEYE BID 01/19/15 [Last Taken 04/30/17] valACYclovir [Valtrex (*)] 500 mg PO BID 01/19/15 [Last Taken 04/30/17] Furosemide [Lasix 20 MG (*)] 20 mg PO Q2D 01/19/16 [Last Taken 04/29/17] Clopidogrel Bisulfate [Plavix (*)] 75 mg PO DAILY #0 tab 01/20/16 [Last Taken ] Aspirin EC [Aspirin EC 81 mg (*)] 81 mg PO HS 05/29/16 [Last Taken 04/29/17] Acetaminophen [Tylenol ES 500 mg (*)] 1,000 mg PO HS 04/30/17 [Last Taken ] Albuterol [Proventil Inhaler HFA (*)] 2 puffs IH DAILY PRN 04/30/17 [Last Taken 04/29/17] Tobramycin/Dexameth [Tobradex opht drops (*)] 1 drops LEFTEYE Q2D 04/30/17 [ Last Taken 04/29/17] Discharge Medications: Refer to the Discharge Home Medication list for PRN reason. - Orders Services needed: Home Care, Registered Nurse, Certified [employer]ching [employer] Operator, Physical Therapy, Occupational Therapy Home Care Face to Face: I certify that this patient was under my care and that I had the required [id number] encounter meeting the encounter requirements on the discharge day. My findings support the fact that the patient is homebound as defined in Home Care Face to Face Continued: CMS Chapter 7 Medicare Benefits Manual 30.1.1 , The condition of the patient is such that there exists a normal inability to leave home and consequently, leaving home would require a considerable and taxing effort. Diet Recommendation: cardiac -low fat low salt Diet Texture: Regular Texture Diet - Labs/Radiology CBC w/diff Date: 05/07/17 - Follow Up Care Current Providers and Referrals: aYnet Clay MD [Primary Care Provider] - As per Instructions Kolby Medina MD [Medical Doctor] - follow up in 2 weeks (Call Dr. Medina's office Sunday or Sunday) Alonso Steele MD [Medical Doctor] - follow up in 1 week
--- NOTE | 2017-05-06 16:16 | GDS ---
[f rep st] DISCHARGE SUMMARY DISCHARGE DIAGNOSES: 1. Coronary artery disease with SFA occlusion: Proximal occluded SFA stent/ popliteal stent. Status post fem/pop bypass. 2. Acute blood loss anemia. 3. Coronary artery disease, hypertension, normocytic anemia, lower back pain. PRIMARY SCREENING NURSE: Dr. Medina. PROCEDURES: 05/02/2017 femoral/popliteal bypass with reversed saphenous vein graft by Dr. Steele. HISTORY OF PRESENT ILLNESS: A 76-year-old female with history of CAD, with remote stent, severe peripheral vascular disease with 3 previous percutaneous interventions at the SFA and popliteal arteries over the last couple years. She has had significant exertional claudication in the right leg, now resulting in persisting rest pain. She is followed by Dr. Medina, who saw her early April, who had her on a walking program. She denied fevers, chills, sweats. No chest pain, shortness of breath. HOSPITAL COURSE BY PROBLEM: 1. Severe PAD, history of prior SFA and popliteal stent, and presenting now with resting claudication. She underwent CTA runoff and subsequent femoral/ popliteal bypass with reverse saphenous vein graft on 05/[address] Steele. Wound is healing well without any evidence of infection. She should follow up with Dr. Steele in 1 week. I gave her strict return precautions of fevers, chills, sweats, erythema or purulence. Continue aspirin and statin. 2. Acute blood loss anemia. H and H dropped today from 9.3 to 7.8. Repeat was at 8.5. She denies any black or bloody stools. There was no evidence of hematoma in the leg and minimal oozing. Her blood pressure is stable and asymptomatic. She will have a repeat CBC tomorrow by home health. 3. Coronary artery disease. No chest pain. Continue statin, beta henrietta. 4. Hypertension. Resume home medications. 5. Lower back pain. Tylenol. DISPOSITION: Patient is stable for discharge home with home health nurse, PT, OT. DISCHARGE MEDICATIONS: New medications: [place] just 10 tabs. FOLLOW UP: 1. Dr. Steele in [address] Medina as previously scheduled. 3. Repeat CBC tomorrow. /[id number]/MODL MTDD
== END 2017-05-06 15:09 | disposition home or self-care (01) | DRG 253 ==
LOC: F3E 11:51 → F2N 05-02 16:13 → F3N 05-04 09:51 → UNDODISIN 05-06 10:18
PROVIDERS: ADMIT Internal Medicine; ATTEND Internal Medicine
PROC: 041K09L Bypass Right Femoral Artery to Popliteal Artery with Autologous Venous Tissue, Open Approach (ICD-10-PCS; principal; 2017-05-02 11:00)
DX: I70.211 Atherosclerosis of native arteries of extremities with intermittent claudication, right leg (principal); I70.221 Atherosclerosis of native arteries of extremities with rest pain, right leg; T82.856A Stenosis of peripheral vascular stent, initial encounter; D62 Acute posthemorrhagic anemia; D86.0 Sarcoidosis of lung; I25.10 Atherosclerotic heart disease of native coronary artery without angina pectoris; I10 Essential (primary) hypertension; E78.5 Hyperlipidemia, unspecified; J43.9 Emphysema, unspecified; Z87.891 Personal history of nicotine dependence; Z96.653 Presence of artificial knee joint, bilateral; Z86.711 Personal history of pulmonary embolism; Z87.11 Personal history of peptic ulcer disease; Z95.5 Presence of coronary angioplasty implant and graft; I25.2 Old myocardial infarction
CPT/HCPCS: 97116-GP; 97161-GP; 97166-GO; 97530-GO; 97530-GP; 97535-GO; G8978-GP-CJ; G8979-GP-CI; G8980-GP-CI; G8987-GO-CJ; G8988-GO-CI; J1170; J1644; J2405; J2440; J2704; J2720; J3010; Q9961; Q9967

== ENCOUNTER → 2017-05-18 | Outpatient (CLI) | payer OTHER, MEDICARE | LOC: FIMAGING 12:03 | PROVIDERS: ATTEND Internal Medicine | DX: R60.0 Localized edema (principal); M79.661 Pain in right lower leg; Z95.828 Presence of other vascular implants and grafts ==

== ENCOUNTER → 2017-06-05 | Outpatient (CLI) | payer OTHER, MEDICARE | LOC: CIMAGING 09:13 | PROVIDERS: ATTEND Internal Medicine | DX: Z12.31 Encounter for screening mammogram for malignant neoplasm of breast (principal) ==

== ENCOUNTER → 2018-01-08 | Outpatient (CLI) | payer OTHER, MEDICARE ==
--- NOTE | 2018-01-09 10:26 | CPEEG ---
DATE OF STUDY: 01/08/2018 DATE OF INTERPRETATION: 01/09/2018 INTERPRETATION: Normal EEG during wakefulness and sleep. There were no potentially epileptogenic ab normalities present during the recording. REPORT: This EEG contains 10 Hz alpha activity to the posterior head regions. There was no abnormal activation at rest, during photic stimulation or hyperventilation. Patient became drowsy and fell a sleep during the study. There was no abnormal activation during drowsiness, sleep, or during times o f arousal. /[id number]/MODL
== END ==
LOC: FCPNEURO 13:53
PROVIDERS: ATTEND Psychiatry & Neurology Neurology
DX: I77.9 Disorder of arteries and arterioles, unspecified (principal); I99.9 Unspecified disorder of circulatory system; R41.3 Other amnesia

== ENCOUNTER → 2018-01-10 | Outpatient (CLI) | payer OTHER, MEDICARE ==
[~2018-01-10] MED LIST: IOPAMIDOL (ISOVUE 370) 100 ML BTL IV ONE
== END ==
LOC: FIMAGING 07:18
PROVIDERS: ATTEND Psychiatry & Neurology Neurology
DX: J98.4 Other disorders of lung (principal); R41.3 Other amnesia; M47.892 Other spondylosis, cervical region; G95.20 Unspecified cord compression; I77.9 Disorder of arteries and arterioles, unspecified
CPT/HCPCS: 70496; 70498; 70551; 71046; Q9967; 82565-PO

== ENCOUNTER → 2018-05-13 | Outpatient (CLI) | payer OTHER, MEDICARE ==
[~2018-05-13] MED LIST changes: -IOPAMIDOL (ISOVUE 370) 100 ML BTL IV ONE; +IOPAMIDOL (ISOVUE-300) 100 ML BTL ONE
== END ==
LOC: CIMAGING 09:20
PROVIDERS: ATTEND Internal Medicine Pulmonary Disease
DX: R59.0 Localized enlarged lymph nodes (principal); D86.9 Sarcoidosis, unspecified; I25.10 Atherosclerotic heart disease of native coronary artery without angina pectoris; K44.9 Diaphragmatic hernia without obstruction or gangrene; E27.9 Disorder of adrenal gland, unspecified
CPT/HCPCS: 71260; Q9967; 82565-PO

== ENCOUNTER → 2018-06-13 | Outpatient (CLI) | payer OTHER, MEDICARE | LOC: CIMAGING 10:43 | PROVIDERS: ATTEND Internal Medicine | DX: Z12.31 Encounter for screening mammogram for malignant neoplasm of breast (principal) ==

== ENCOUNTER 2018-07-16 12:23 | Observation (INO) | payer OTHER, MEDICARE ==
[2018-07-16] MEDS ORDERED: IOPAMIDOL (ISOVUE 370) 100 ML BTL IV ONE (13:53)
[2018-07-16] MEDS ORDERED: ACETAMINOPHEN 325 MG TAB PO PRN (15:24)
[2018-07-16] MEDS ORDERED: ONDANSETRON DISINTEGRATING 4 MG TAB PO PRN (15:24)
[2018-07-16] MEDS ORDERED: ONDANSETRON 4 MG/2 ML VIAL IVP PRN (15:24)
[2018-07-16] MEDS ORDERED: ALBUTEROL 60 PUFFS/8 GM MDI IH PRN (15:28)
[2018-07-16] MEDS ORDERED: NITROGLYCERIN 0.4 MG BTL SL PRN (15:28)
[2018-07-16] MEDS ORDERED: ROSUVASTATIN CALCIUM 20 MG TAB PO SCH (20:00)
[2018-07-16] MEDS: valACYclovir 500 MG TAB PO SCH (20:38)
[2018-07-16] MEDS: CARVEDILOL 25 MG TAB PO SCH (20:39)
[2018-07-16] MEDS: LOSARTAN POTASSIUM 25 MG TAB PO SCH (20:39)
[2018-07-16] MEDS: cycloSPORINE 0.05% 30 DROPERETTE/BOX EACHEYE SCH (22:45)
[2018-07-17] MEDS ORDERED: DIAZEPAM 5 MG TAB PO ONE (06:15)
[2018-07-17] MEDS ORDERED: ASPIRIN EC 325 MG TAB PO ONE ×2 (06:15→06:41)
[2018-07-17] MEDS ORDERED: FAMOTIDINE 20 MG TAB PO ONE (06:15)
[2018-07-17] MEDS ORDERED: diphenhydrAMINE 25 MG CAP PO ONE ×2 (06:15→06:41)
[2018-07-17] MEDS ORDERED: NS 1,000 ML IV ONE (06:15)
[2018-07-17] MEDS ORDERED: FAMOTIDINE 20 MG TAB ONE (06:41)
[2018-07-17] MEDS ORDERED: DIAZEPAM 5 MG TAB ONE (06:42)
[2018-07-17] MEDS ORDERED: IOPAMIDOL (ISOVUE-370) 150 ML BTL IV ONE (06:57)
[2018-07-17] MEDS ORDERED: LIDOCAINE 1% 300 MG/30 ML SDV ONE (06:57)
[2018-07-17] MEDS ORDERED: fentaNYL 100 MCG/2 ML INJ ONE (06:57)
[2018-07-17] MEDS ORDERED: MIDAZOLAM 2 MG/2 ML VIAL ONE (06:57)
[2018-07-17] MEDS ORDERED: CHOLECALCIFEROL VIT D3 1,000 UNITS TAB PO SCH (09:00)
[2018-07-17] MEDS ORDERED: CYANO/VITAMIN B12 1000 MCG TAB PO SCH (09:00)
[2018-07-17] MEDS ORDERED: PANTOPRAZOLE SODIUM 40 MG TAB PO SCH (09:00)
[2018-07-17] MEDS ORDERED: PREDNISOLONE ACETATE LEFTEYE SCH (09:00)
[2018-07-17] MEDS ORDERED: ASPIRIN EC 81 MG TAB PO SCH (09:00)
[2018-07-17] MEDS ORDERED: MULTIVITAMINS 1 EACH TAB PO SCH (09:00)
[2018-07-17] MEDS ORDERED: MEMANTINE HCL 5 MG TAB PO SCH (09:00)
[2018-07-17] MEDS ORDERED: OMEGA-3 ETHYL EST-LOVAZA 1 GM CAP PO SCH (09:00)
[2018-07-17] MEDS: LOSARTAN POTASSIUM 25 MG TAB PO SCH (10:16)
[2018-07-17] MEDS: valACYclovir 500 MG TAB PO SCH (10:18)
[2018-07-17] MEDS: CARVEDILOL 25 MG TAB PO SCH (10:19)
[2018-07-17] MEDS: cycloSPORINE 0.05% 30 DROPERETTE/BOX EACHEYE SCH (10:25)
[2018-07-17] MEDS ORDERED: ISOSORBIDE MONONITRATE 30 MG TAB.SR PO SCH (10:45)
[2018-07-19] MEDS ORDERED: FUROSEMIDE 20 MG TAB PO SCH (08:00)
[2018-07-21] MEDS ORDERED: METHOTREXATE 2.5 MG TAB PO SCH (15:28)
== END 2018-07-17 17:04 | disposition home or self-care (01) ==
DX: I25.110 Atherosclerotic heart disease of native coronary artery with unstable angina pectoris (principal); I50.42 Chronic combined systolic (congestive) and diastolic (congestive) heart failure; D86.0 Sarcoidosis of lung; M06.9 Rheumatoid arthritis, unspecified; G31.84 Mild cognitive impairment of uncertain or unknown etiology; I25.2 Old myocardial infarction; Z95.5 Presence of coronary angioplasty implant and graft; Z94.7 Corneal transplant status; Z96.653 Presence of artificial knee joint, bilateral; Z87.891 Personal history of nicotine dependence
CPT/HCPCS: 71045; 71275; 93005; 93306; 93458; 99285; G0378; J1644; J2250; J3010; Q9967